=== PATIENT | male | born 1955 | race Caucasian/White ===

== ENCOUNTER 2019-08-22 14:03 | Inpatient (IN) ==
[2019-08-22] MEDS ORDERED: ASPIRIN PO ONE (14:11)
--- NOTE | 2019-08-22 14:15 | PROVIDER DOCUMENTATION ---
HPI-Chest Pain - General Chief Complaint: Chest Pain Stated Complaint: "HEART ATTACK SYMPTOMS" Time Seen by Provider: 08/22/19 14:07 Source: patient, family Allergies/Adverse Reactions: Patient Allergies Allergy/AdvReac Type Severity Reaction Status Date / Time No Known Allergies Allergy Verified 08/22/19 16:38 Home Medications: Home Medication List Medication Instructions Recorded Confirmed Last Taken Type Hydrocodone/APAP 10 mg/325 mg 1 each PO Q4H PRN PRN #20 tablet 06/09/14 12/11/17 11/14/17 16:00 Rx [[place]-10] Aspirin [Aspirin EC] 1 tab PO DAILY 06/26/14 12/11/17 11/14/17 08:00 History Amlodipine Besylate 1 tab PO DAILY 02/06/17 12/11/17 11/14/17 08:00 History Carvedilol 25 mg PO DAILY 02/06/17 12/11/17 11/14/17 18:00 History Clonidine HCl 1 tab PO DAILY 02/06/17 12/11/17 11/14/17 08:00 History Colchicine 0.6 mg PO TID #30 capsule 02/06/17 12/11/17 11/14/17 18:00 Rx Glipizide [Glucotrol] 1 tab PO DAILY 02/06/17 12/11/17 11/14/17 08:00 History Losartan Potassium 1 tab PO DAILY 02/06/17 12/11/17 11/14/17 18:00 History Pravastatin Sodium 1 tab PO HS 02/06/17 12/11/17 11/14/17 18:00 History Dulaglutide [Trulicity] 0.75 units SQ DIRECTED 05/27/17 12/11/17 11/14/17 08:00 History Insulin Degludec [Tresiba 30 units SQ DAILY 05/27/17 12/11/17 11/14/17 08:00 History Flextouch U-200] Colchicine [Mitigare] 0.6 mg PO DAILY #30 cap 11/08/18 Unknown Rx Prednisone 20 mg PO DIRECTED #18 tab 11/08/18 Unknown Rx - History of Present Illness-CP Nature of Presenting Problem: Patient is a 64 yo M with PMH of DM2, HTN, CVA, CAD, GERD, Gout, Nephrolithiasis, who presents to the ED c/o 3-4 days of right shoulder pain radiating to the center of his chest. He attributes his shoulder pain to an acute attack of gouty arthritis. He denies dizziness, sob, palpitations, syncope, n/v/d. He endorses a h/o "multiple heart attacks" but says he does not follow with a customer advisor specialist. Per chart review- patient was admitted for chest pain in 06/2014, EKG and cardiac enzymes were trended and neg but do to risk factors, further cardiac work-up was recommended- which patient refused. His PCP is Dr. Rhodes. Location: reports: central, shoulder (Right) Quality of Pain: reports: aching Severity in ED: severe Onset/Duration: abrupt, 3 days ago Timing: still present, getting worse Context/Activities at Onset: reports: none Modifying Factors: improves with: nothing Associated Symptoms: reports: denies symptoms Aspirin Treatment Today: provided by ED Prior Chest Pain/Cardiac Workup: reports: no prior cardiac workup, angina Similar Symptoms Previously?: Yes Recently Seen Here or By Another Healthcare Provider: No Review of Systems - Adult - REVIEW OF SYSTEMS - ADULT Constitutional: reports: no symptoms reported Eyes: reports: no symptoms reported Ears, Nose, Mouth & Throat: reports: no symptoms reported Cardiovascular: reports: see HPI Respiratory: reports: no symptoms reported Gastrointestinal: reports: no symptoms reported Genitourinary: reports: no symptoms reported Musculoskeletal: reports: no symptoms reported Integumentary: reports: no symptoms reported Neurological: reports: no symptoms reported Psychiatric: reports: no symptoms reported Endocrine: reports: no symptoms reported Hematologic/Lymphatic: reports: no symptoms reported Allergic/Immunologic: reports: no symptoms reported All Other Systems: Reviewed and Negative Past History - Adult - PAST MEDICAL HISTORY-ADULT Review of Records: reports: Old Records Reviewed, Nursing Assessment Review, Medications Reviewed, Social history reviewed & non-contributory. Major Childhood Illnesses: reports: denies history Cardiovascular: reports: CAD, HTN, hyperlipidemia, [place] Respiratory: reports: denies history Gastrointestinal: reports: GERD Obstetrical/Gynecological: reports: denies history Genitourinary: reports: kidney disease, kidney stones Musculoskeletal: reports: chronic pain, other (gout) Neurological: reports: CVA Endocrine/Immune: reports: denies history, Diabetes Diabetes Type: Type 2 Other Conditions: reports: denies history Additional History: GOUT - PRIOR SURGERIES/PROCEDURES Surgical/Procedure History: reports: other (abdominal) - IMMUNIZATION STATUS Childhood Immunizations: See Nurse Assessment Flu Vaccine: See Nurse Assessment - FAMILY HISTORY Family History: reviewed, not pertinent - SOCIAL HISTORY Smoking: denies Substance Use: none/never Alcohol Use Frequency: sober (former use) Living Situation: family Physical Exam-General - PHYSICAL EXAM-ADULT Initial Vital Signs Reviewed: Yes (Mild tachycardia noted, hypertension noted ) - CONSTITUTIONAL General Appearance: alert, no apparent distress, other (Appears to be in pain (c/o shoulder pain)) - EYES Eyes: PERRL/EOMI - HEAD, EARS, NOSE, MOUTH & THROAT HENMT: normocephalic/atraumatic, moist mucous membranes - NECK Neck: non-tender, full range of motion - RESPIRATORY Respiratory: chest non-tender, lungs clear, normal breath sounds - CARDIOVASCULAR Cardiovascular: normal peripheral pulses, no edema, no gallop, tachycardia, systolic murmur (Best at [facility]) - GASTROINTESTINAL (ABDOMEN) Abdominal Exam: normal bowel sounds, non tender, soft, no organomegaly - LYMPHATIC Lymphatic: no adenopathy - MUSCULOSKELETAL Back Exam: decreased range of motion (+ tenderness with passive and active ROM of right shoulder) Extremity: non-tender, no calf tenderness - NEUROLOGIC Neurologic: grossly normal - PSYCHIATRIC Psych/Mental Status: oriented x 3 - HEART Score HEART Score: History: Moderately Suspicious HEART Score: ECG: Non-Specific Repolarization Disturbance/LBBB/PM HEART Score: Age: 45-65 Years HEART Score: Risk Factors for Atherosclerotic Disease: > or = 3 Risk Factors or History of Atherosclerotic Disease HEART Score: Troponin: 1-3x Normal Limit (High risk for MACE) Total HEART Score:: 6 Progress - PLAN OF CARE/RESULTS Progress/Plan/Lab Results: Vital Signs - 8 hr 08/22/19 16:38 08/22/19 16:40 08/22/19 17:00 Pulse Rate 100 H Respiratory Rate 22 Blood Pressure 177/107 O2 Sat by Pulse Oximetry 95 95 93 L 08/22/19 18:00 08/22/19 18:50 Pulse Rate 101 H 97 H Respiratory Rate 25 H 25 H Blood Pressure 185/107 O2 Sat by Pulse Oximetry 93 L 93 L Laboratory Results - last 24 hr 08/22/19 08/22/19 08/22/19 14:17 14:17 14:17 WBC 25.14 H RBC 5.39 Hgb 14.1 Hct 44.1 MCV 81.8 MCH 26.2 L MCHC 32.0 L RDW Std Deviation 15.4 H Plt Count 203 MPV 12.0 H Immature Gran % (Auto) 0.4 Neut % (Auto) 82.6 H Lymph % (Auto) 4.2 L [place] % (Auto) 12.6 H Eos % (Auto) 0.0 Baso % (Auto) 0.2 Immature Gran # (Auto) 0.11 H Neut # (Auto) 20.75 H Lymph # (Auto) 1.05 L [place] # (Auto) 3.18 H Eos # (Auto) 0.00 Baso # (Auto) 0.05 PT INR PTT (Actin FS) Sodium 135 L Potassium 4.2 Chloride 96 L Carbon Dioxide 23 L Anion Gap 16 BUN 25 H Creatinine 1.9 H Estimated GFR/1.73 m2 36 BUN/Creatinine Ratio 13 Glucose 265 H Calculated Osmolality 284 Uric Acid Calcium 9.2 Total Bilirubin 0.51 AST 9 L ALT 6 L Alkaline Phosphatase 73 Creatine Kinase 71 Troponin T High Sens Eag-G-Leawatkfcfj Pept 7046 H Total Protein 7.8 Albumin 4.0 Globulin 3.8 Albumin/Globulin Ratio 1.1 Plasma Lactate Urine Source Urine Color Urine Turbidity Urine pH Ur Specific [place] Urine Protein Ur Glucose (Stick) Ur Ketones (Stick) Urine Blood Urine Nitrite Urine Bilirubin Urobilinogen Dipstick Urine Leukocytes Urine WBC (Auto) Urine RBC (Auto) U Epithel Cells (Auto) Urine Bacteria (Auto) 08/22/19 08/22/19 08/22/19 14:17 14:17 16:43 WBC RBC Hgb Hct MCV MCH MCHC RDW Std Deviation Plt Count MPV Immature Gran % (Auto) Neut % (Auto) Lymph % (Auto) [place] % (Auto) Eos % (Auto) Baso % (Auto) Immature Gran # (Auto) Neut # (Auto) Lymph # (Auto) [place] # (Auto) Eos # (Auto) Baso # (Auto) PT 15.3 INR 1.19 PTT (Actin FS) 37.6 Sodium Potassium Chloride Carbon Dioxide Anion Gap BUN Creatinine Estimated GFR/1.73 m2 BUN/Creatinine Ratio Glucose Calculated Osmolality Uric Acid Calcium Total Bilirubin AST ALT Alkaline Phosphatase Creatine Kinase Troponin T High Sens 34 H* 33 H* Sgd-M-Zzifwuohyjw Pept Total Protein Albumin Globulin Albumin/Globulin Ratio Plasma Lactate Urine Source Urine Color Urine Turbidity Urine pH Ur Specific [place] Urine Protein Ur Glucose (Stick) Ur Ketones (Stick) Urine Blood Urine Nitrite Urine Bilirubin Urobilinogen Dipstick Urine Leukocytes Urine WBC (Auto) Urine RBC (Auto) U Epithel Cells (Auto) Urine Bacteria (Auto) 08/22/19 08/22/19 08/22/19 16:45 17:18 18:43 WBC RBC Hgb Hct MCV MCH MCHC RDW Std Deviation Plt Count MPV Immature Gran % (Auto) Neut % (Auto) Lymph % (Auto) [place] % (Auto) Eos % (Auto) Baso % (Auto) Immature Gran # (Auto) Neut # (Auto) Lymph # (Auto) [place] # (Auto) Eos # (Auto) Baso # (Auto) PT INR PTT (Actin FS) Sodium Potassium Chloride Carbon Dioxide Anion Gap BUN Creatinine Estimated GFR/1.73 m2 BUN/Creatinine Ratio Glucose Calculated Osmolality Uric Acid 8.6 H Calcium Total Bilirubin AST ALT Alkaline Phosphatase Creatine Kinase 69 Troponin T High Sens Udu-U-Qsdyemafojy Pept Total Protein Albumin Globulin Albumin/Globulin Ratio Plasma Lactate 2.2 Urine Source CLEAN CATCH Urine Color YELLOW Urine Turbidity CLEAR Urine pH 6.0 Ur Specific [place] 1.023 Urine Protein 600 A Ur Glucose (Stick) 1000 A Ur Ketones (Stick) NEGATIVE Urine Blood SMALL A Urine Nitrite NEGATIVE Urine Bilirubin NEGATIVE Urobilinogen Dipstick NORMAL Urine Leukocytes NEGATIVE Urine WBC (Auto) 10-20 A Urine RBC (Auto) 10-20 A U Epithel Cells (Auto) <10 Urine Bacteria (Auto) NEGATIVE 08/22/19 22:45 WBC RBC Hgb Hct MCV MCH MCHC RDW Std Deviation Plt Count MPV Immature Gran % (Auto) Neut % (Auto) Lymph % (Auto) [place] % (Auto) Eos % (Auto) Baso % (Auto) Immature Gran # (Auto) Neut # (Auto) Lymph # (Auto) [place] # (Auto) Eos # (Auto) Baso # (Auto) PT INR PTT (Actin FS) Sodium Potassium Chloride Carbon Dioxide Anion Gap BUN Creatinine Estimated GFR/1.73 m2 BUN/Creatinine Ratio Glucose Calculated Osmolality Uric Acid Calcium Total Bilirubin AST ALT Alkaline Phosphatase Creatine Kinase Troponin T High Sens Vvn-A-Otqogbojuhp Pept Total Protein Albumin Globulin Albumin/Globulin Ratio Plasma Lactate 1.4 Urine Source Urine Color Urine Turbidity Urine pH Ur Specific [place] Urine Protein Ur Glucose (Stick) Ur Ketones (Stick) Urine Blood Urine Nitrite Urine Bilirubin Urobilinogen Dipstick Urine Leukocytes Urine WBC (Auto) Urine RBC (Auto) U Epithel Cells (Auto) Urine Bacteria (Auto) Orders Category Date Time Status Admit [facility] Routine AdmDCTranf 08/22/19 21:28 Active Activity Type ORDERED Care 08/22/19 22:57 Active Cardiac Monitoring DIRECTED Care 08/22/19 14:12 Active Cardiac Monitoring DIRECTED Care 08/22/19 16:57 Active FSBS/Accucheck Result AC + HS Care 08/22/19 21:33 Active IV Insertion ORDERED Care 08/22/19 16:57 Completed Notify MD of + Sepsis Screen NOW Care 08/22/19 16:57 Active Notify Physician As Ordered Care 08/22/19 16:57 Active Oxygen Therapy- ED Nursing DIRECTED Care 08/22/19 14:12 Active Saline Loc NOW Care 08/22/19 14:12 Active Vital Signs Order Q 4-HR ASSESS Care 08/22/19 21:31 Active Diabetic Diet Diet 08/22/19 22:58 Active CHEST-2 VIEWS [RAD] Stat Exams 08/22/19 14:12 Completed A1C HGB W EST AVG GLUCOSE [CHEM] Routine Lab 08/23/19 06:00 Ordered BLOOD CULTURE [BLDCUL] Stat Lab 08/22/19 18:10 Results CBC WITH ELECTRONIC DIFF [HEME] Stat Lab 08/22/19 14:17 Completed CK PROFILE [SP CHEM] Stat Lab 08/22/19 14:17 Completed CK PROFILE [SP CHEM] Stat Lab 08/22/19 16:45 Completed COMPREHENSIVE METABOLIC PANEL [CHEM] Stat Lab 08/22/19 14:17 Completed LACTATE, PLASMA [CHEM] Lab 08/22/19 17:18 Completed LACTATE, PLASMA [CHEM] Lab 08/22/19 22:45 Completed LACTATE, PLASMA [CHEM] Lab 08/22/19 23:00 Uncollected PRO B-NATRIURETIC PEPTIDE Stat Lab 08/22/19 14:17 Completed PROTIME WITH INR [COAG] Stat Lab 08/22/19 14:17 Completed PTT [COAG] Stat Lab 08/22/19 14:17 Completed TROPONIN T HIGH SENSITIVITY Stat Lab 08/22/19 14:17 Completed TROPONIN T HIGH SENSITIVITY Stat Lab 08/22/19 16:43 Completed URIC ACID [CHEM] Stat Lab 08/22/19 16:45 Completed URINALYSIS W/POSS RFLX CULT [URINALYSIS] Stat Lab 08/22/19 18:43 Completed URINE CULTURE [RM] Routine Lab 08/22/19 18:43 Received Aspirin Med 08/22/19 14:11 Discontinued 325 mg PO NOW ONE Colchicine [Colcrys] Med 08/22/19 16:20 Discontinued 1.2 mg PO NOW ONE Dexamethasone [Decadron] Med 08/22/19 16:15 Discontinued 10 mg IM NOW ONE Dextrose 5%-0.9% NaCl Inj [D5 Ns] 1,000 ml Med 08/22/19 18:58 Active IV 60 mls/hr Furosemide [Lasix] Med 08/22/19 18:58 Discontinued 40 mg IV NOW ONE Insulin Lispro [Humalog] Med 08/23/19 07:00 Active See Protocol SUBQ 0700,1100,1600,2100 Morphine Med 08/22/19 19:03 Discontinued 4 mg IV NOW ONE Ondansetron [Zofran] Med 08/22/19 18:07 Discontinued 4 mg IM NOW ONE Ondansetron [Zofran] Med 08/22/19 18:11 Discontinued 4 mg IV NOW ONE CP/SOB/Palp >45 yrs of Age Stat Oth 08/22/19 14:11 Ordered Oxygen Device Stat Oth 08/22/19 16:57 Active EKG [EKG] Stat Ther 08/22/19 14:12 Draft EKG [EKG] Stat Ther 08/22/19 17:00 Draft Transfer/Admit Order [TRANSFER] Routine Transfer 08/22/19 21:29 Completed Patient presents with atypical cp. Initial cardiac enzymes elevated, EKG- no acute change from prior, Troponin/EKG trended x 2 in the ED, Troponin stable and no ekg changes noted. BNP elevated form baseline. Heart score- high risk. Elevated WBC likely 2/2 chronic steroid use and acute flare of gouty arthritis. Will proceed with admission to complete cardiac work-up and treat for gout. Result Diagrams: 08/22/19 14:17 08/22/19 14:17 - EKG 1 Time of EKG reading by physician:: 14:11 EKG Read and Signed by:: Cherelle Moran EKG Interpretation (*Must complete 3 of following elements*): Abnormal Rate: 101 Rhythm: Sinus tachycardia [place]: normal QRS: normal [place] Interval: normal ST Wave: depressed, non-specific ST changes Prior EKG Comparison: unchanged from prior (No change from 11/15/2017, 1025) 2 Time of EKG reading by physician:: 17:15 EKG Read and Signed by:: Cherelle Moran EKG Interpretation (*Must complete 3 of following elements*): Abnormal Rate: 100 Rhythm: Sinus rhythm with fusion complexes [place]: normal [place] Interval: normal ST Wave: non-specific ST changes Prior EKG Comparison: unchanged from prior - XRAY 1 XRAY Study: Chest (EXAM: CHEST-2 VIEWS HISTORY: cp TECHNIQUE: Two views COMPARISON: 11/19/2016 FINDINGS: The lungs are well expanded. The heart is not enlarged. The vessels are not distended. There are no infiltrates. No pleural effusions. IMPRESSION: No acute abnormality. Electronically signed by Luigi Crawford 08/22/2019 4:31 PM) Impression: See EMR Report - CONSULTS/PCP/HOSPITALIST Notification #1 *Consult/PCP/Hospitalist*: Dr. Workman Time Discussed: 20:10 Reason/Comments: Admit to inpatient Consult Disposition: Admit (Consult cardiology to address any further recommendations in light of elevated Troponin), other #2 Consult: Cardiology Time Discussed: 20:37 Reason/Comments: Troponinemia- patient possibly has underlying CAD, acute ACS less likely Time Discussed: 20:50 Consult Disposition: other (Foreclosure Clerk (Dr. Wong) reviewed historic records, per review, patient underwent a cardiac cath in 1997 which was neg, no other cardiac w/up available.) Departure - Departure Date of Disposition Decision: 08/22/19 Time of Disposition Decision: 20:22 DIAGNOSIS: CKD (chronic kidney disease) stage 3, GFR 30-59 ml/min, Elevated troponin Congestive cardiac failure Qualifiers: Heart failure type: unspecified Heart failure chronicity: acute on chronic Qualified Code(s): I50.9 - Heart failure, unspecified Acute gout Qualifiers: Gout site: shoulder Gout etiology: idiopathic Laterality: right Qualified Code(s): M10.011 - Idiopathic gout, right shoulder Leukocytosis Qualifiers: Leukocytosis type: other Qualified Code(s): D72.828 - Other elevated white blood cell count Disposition: ADMITTED INPATIENT 09 Certified Medical Emergency: Emergent Condition: Stable - Critical Care Note This patient required my direct & personal management of CC.: Yes Total Time (mins): 70 Critical Care Statement: This patient required my direct personal management to treat or rule out processes, the absence of which, could potentiallly result in sudden, clinically significant life or limb threatening deterioration. Attestation - Physician/ LORNA Attestation Patient care was provided by Advanced Practice Provider:: No The physician spent face to face time with patient:: Yes Advanced Practice Provider documentation review:: Supervising physician onsite and consulted in the evaluation and care of this patient. The physician did have a face to face encounter with the patient.
--- NOTE | 2019-08-22 14:16 | EKG Report ---
Test Performed on : 08/22/2019 2:11:04 PM Test Reason : cp Blood Pressure : / mmHG Vent. Rate : 101 BPM Atrial Rate : 101 BPM P-R Int : 162 ms QRS Dur : 082 ms QT Int : 376 ms P-R-T Axes : 030 -05 048 degrees QTc Int : 487 ms Sinus tachycardia. Marked ST abnormality, possible inferior subendocardial injury Abnormal ECG When compared with ECG of 15-NOV-2017 10:25, No significant change was found Unconfirmed Result
[2019-08-22 14:30] LABS: BASO# 0.05 X1000 (0.0-0.2); BASO% 0.2 % (0.0-0.8); HEMATOCRIT 44.1 % (42.0-52.0); HEMOGLOBIN 14.1 g/dL (14.0-18.0); IMM GRAN# 0.11 X1000 (0.0-0.04); IMM GRAN% 0.4 % (0.0-0.5); LYMPH# 1.05 X1000 (1.2-3.4); LYMPH% 4.2 % (20.5-51.1); MCH 26.2 PG (27-31); MCV 81.8 FL (81-99); MONO# 3.18 X1000 (0.11-0.59); MONO% 12.6 % (1.7-9.3); NEUT# 20.75 X1000 (1.4-6.5); NEUT% 82.6 % (42.2-75.2); PLT 203 X1000 (130-400); RBC 5.39 XMIL (4.7-6.1); RDW 15.4 % (11.5-14.5); WBC 25.14 X1000 (4.8-10.8)
[2019-08-22 14:35] LABS: INR 1.19; PROTIME 15.3 Seconds (11.0-16.0)
[2019-08-22 14:36] LABS: PTT 37.6 Seconds (22.3-41.8)
[2019-08-22 14:49] LABS: ALB/GLOB RATIO 1.1; CALCIUM 9.2 mg/dL (8.8-10.2); CREATININE 1.9 mg/dL (0.7-1.2); POTASSIUM 4.2 mmol/L (3.5-5.1); TOTAL BILIRUBIN 0.51 mg/dL (0.20-1.00); TOTAL PROTEIN 7.8 g/dL (6.3-8.3)
[2019-08-22] MEDS ORDERED: DECADRON IM ONE (16:15)
[2019-08-22] MEDS ORDERED: COLCRYS PO ONE (16:20)
--- NOTE | 2019-08-22 16:33 | Diag Imaging Result Doc PS360 ---
EXAM: CHEST-2 VIEWS HISTORY: cp TECHNIQUE: Two views COMPARISON: 11/19/2016 FINDINGS: The lungs are well expanded. The heart is not enlarged. The vessels are not distended. There are no infiltrates. No pleural effusions. IMPRESSION: No acute abnormality. Electronically signed by Luigi Crawford 08/22/2019 4:31 PM
[2019-08-22 17:13] LABS: URIC ACID 8.6 mg/dL (3.4-7.0)
--- NOTE | 2019-08-22 17:22 | EKG Report ---
Test Performed on : 08/22/2019 5:12:20 PM Test Reason : Chest pain Blood Pressure : / mmHG Vent. Rate : 100 BPM Atrial Rate : 100 BPM P-R Int : 176 ms QRS Dur : 078 ms QT Int : 354 ms P-R-T Axes : 069 -03 237 degrees QTc Int : 456 ms Sinus rhythm. with fusion complexes Nonspecific ST and T wave abnormality Abnormal ECG When compared with ECG of 22-AUG-2019 17:11, (Unconfirmed) Sinus rhythm. has replaced Junctional rhythm. Nonspecific T wave abnormality has replaced inverted T waves in Inferior leads Unconfirmed Result
[2019-08-22] MEDS ORDERED: ZOFRAN IM ONE (18:07)
[2019-08-22] MEDS ORDERED: ZOFRAN IV ONE (18:11)
[2019-08-22 18:52] LABS: URINE SOURCE CLEAN CATCH
[2019-08-22 18:55] LABS: BILIRUBIN URINE NEGATIVE (NEGATIVE); BLOOD URINE SMALL (NEGATIVE); COLOR YELLOW; GLUCOSE URINE 1000 mg/dL (NEGATIVE); KETONE URINE NEGATIVE (NEGATIVE); LEUKOCYTES URINE NEGATIVE (NEGATIVE); NITRITE URINE NEGATIVE (NEGATIVE); PROTEIN URINE 600 mg/dL (NEGATIVE); SP GRAVITY URINE 1.023; TURBIDITY URINE CLEAR (CLEAR); UROBILINOGEN URINE NORMAL (NORMAL)
[2019-08-22 18:56] LABS: UR EPITHELIAL CELLS <10 /HPF (<10); URINE BACTERIA NEGATIVE /HPF
[2019-08-22] MEDS ORDERED: D5 NS 1,000 ML IV ONE (18:58)
[2019-08-22] MEDS ORDERED: LASIX IV ONE (18:58)
[2019-08-22] MEDS ORDERED: MORPHINE IV ONE (19:03)
[2019-08-23] MEDS ORDERED: MORPHINE IV ONE (04:52)
[2019-08-23 04:57] LABS: HEMOGLOBIN A1C 9.1 % (4.8-6.0)
[2019-08-23] MEDS ORDERED: SOLU-MEDROL IV SCH (05:00)
[2019-08-23] MEDS ORDERED: NITROGLYCERIN TOP SCH (05:15)
[2019-08-23] MEDS ORDERED: LEVAQUIN 250 MG/D5W 250 MG/50 ML IVPB IV SCH (05:15)
--- NOTE | 2019-08-23 07:42 | EKG Report ---
Test Performed on : 08/23/2019 07:15:10 AM Test Reason : chest pain, right upper shoulder pain Blood Pressure : / mmHG Vent. Rate : 094 BPM Atrial Rate : 094 BPM P-R Int : 162 ms QRS Dur : 086 ms QT Int : 412 ms P-R-T Axes : 055 000 -36 degrees QTc Int : 515 ms Normal sinus rhythm. Nonspecific ST abnormality Prolonged QT Abnormal ECG When compared with ECG of 23-AUG-2019 04:15, (Unconfirmed) premature ventricular complexes. are no longer present Confirmed by Chandra BOONE, Eben Del Rosario ([id number]) on 08/23/2019 10:21:02 AM
--- NOTE | 2019-08-23 07:49 | Diag Imaging Result Doc PS360 ---
EXAM: SHOULDER-RIGHT 08/23/2019 HISTORY: pain right shoulder TECHNIQUE: AP portable, two views, at 0607 COMMENT: There is no evidence of fracture or dislocation periosteal reaction or erosion. There are mild degenerative changes in the acromioclavicular joint. IMPRESSION: No acute bony abnormality. Electronically signed by Basilio Rivera 08/23/2019 7:46 AM
[2019-08-23] MEDS: HUMALOG SUBQ SCH ×4 (07:58→21:33)
[2019-08-23] MEDS: PROTONIX PO SCH (07:59)
[2019-08-23] MEDS ORDERED: VANCOMYCIN IV PER PHARMACY MISC SCH (08:00)
[2019-08-23] MEDS ORDERED: COREG PO SCH (09:00)
[2019-08-23] MEDS ORDERED: NORVASC PO SCH (09:00)
[2019-08-23] MEDS ORDERED: COLCRYS PO SCH (09:00)
--- NOTE | 2019-08-23 09:27 | EKG Report ---
Test Performed on : 08/23/2019 04:15:44 AM Test Reason : RHYTHM CHANGE Blood Pressure : / mmHG Vent. Rate : 088 BPM Atrial Rate : 088 BPM P-R Int : 174 ms QRS Dur : 084 ms QT Int : 430 ms P-R-T Axes : 054 012 -39 degrees QTc Int : 520 ms Sinus rhythm. with occasional premature ventricular complexes. ST & T wave abnormality, consider inferior ischemia Prolonged QT Abnormal ECG When compared with ECG of 22-AUG-2019 17:12, (Unconfirmed) fusion complexes are no longer present premature ventricular complexes. are now present T wave inversion now evident in Inferior leads QT has lengthened Unconfirmed Result
[2019-08-23] MEDS ORDERED: VANCOMYCIN 2,000 MG in NS 500 ML IV ONE (09:30)
--- NOTE | 2019-08-23 09:38 | HISTORY AND PHYSICAL ---
CHIEF COMPLAINT: Right shoulder pain for about 2 to 3 days. HISTORY OF PRESENT ILLNESS: Mr. Ankit Barriga is a 64-year-old male who has a history of gout, hyperlipidemia, hypertension, previous CVA, coronary artery disease as well as diabetes mellitus. He presents to the hospital because of pain which he noticed in the right shoulder region in the last 2 to 3 days. He describes the pain as sharp constant and non radiating. No known alleviating factors. It is made worse with activity. The patient indicates that he had gout flare involving that shoulder about 3 months ago. Typically, his gout could be flared by eating the wrong food including seafood as well as red meat. On presenting to the ER, the patient was found to have a uric acid level of about 8.6. The patient will be admitted to the floor now for further management. PAST MEDICAL HISTORY: Diabetes mellitus, coronary artery disease, previous CVA, hypertension, gout, and hyperlipidemia. SOCIAL HISTORY: Denies any current history of cigarette smoking. No alcohol or drug use. ALLERGIES: No known drug allergies. FAMILY HISTORY: Positive for COPD. 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 MEDICATIONS: His medications include the following. 1. Amlodipine 10 mg p.o. daily. 2. Aspirin 81 mg p.o. daily. 3. Coreg 25 mg p.o. as directed. 4. Losartan 100 mg p.o. as directed. 5. Prednisone 20 mg p.o. as directed. 6. Clonidine 0.3 mg as directed. 7. Colchicine 0.6 mg as directed. 8. Dulaglutide as directed. 9. Glipizide 10 mg as directed. 10. Hydrocodone/acetaminophen 10/325 as directed. 11. Pravastatin 40 mg p.o. daily. REVIEW OF SYSTEMS: Constitutional: No fever. [employer]: No headaches. Eyes: No blurred vision. ENT: He has some hearing loss. Cardiovascular: No chest pain. Respiratory: No cough. GI: No nausea or vomiting. No abdominal pains. No diarrhea or constipation. : No dysuria. Dermatology: No skin lesions. Hematology: No bleeding problems. Musculoskeletal: He has joint pains. Endocrinology: He has diabetes. Allergy/Immunology: No symptoms suggestive of allergic rhinitis. LABORATORY DATA: WBC is 25.14, hematocrit 44.1, with a platelet count of 203,000. INR is 1.19. Sodium is 135, potassium 4.2, chloride is 96, bicarb 23, BUN is 25, and creatinine is 1.9. Glucose 265. Uric acid 28.6. Troponin 33. ProBNP is 7046. UA shows 10-20 WBCs per high-power field. X-ray of the chest, the lungs are well-expanded. The heart is not enlarged. The vessels are nondistended. There are no infiltrates. No pleural effusion. ASSESSMENT AND PLAN: 1. Acute gout flare involving the right shoulder. We will start patient on intravenous steroids. Continue colchicine. Obtain x-ray of the right shoulder. 2. Coronary artery disease/elevated troponin. Place patient on telemetry, and get serial cardiac enzymes. Maintain patient on aspirin as well as beta ashia and nitroglycerin p.r.n. for chest pain. Obtain a lipid panel. Consult with Cardiology. 3. Diabetes mellitus. Maintain patient on sliding scale insulin. Monitor blood sugar levels. Check hemoglobin A1c. Place patient on diabetic diet. 4. History of CVA. Continue aspirin as well as a statin supportive care. 5. Hypertension. Optimize blood pressure control using oral agents. 6. Renal insufficiency, probably chronic. (Acute kidney injury superimposed on chronic kidney disease. Closely follow up on renal function, and avoid nephrotoxic agent.) 7. Leukocytosis probably secondary to the effect of steroids. However, cannot rule out infection. We will check UA with urine culture. We will check urine culture as well as blood cultures with a flu test. 8. Probable urinary tract infection. Start patient on empiric antibiotics. Follow up on urine and blood culture report. 9. Elevated proBNP level. Obtain 2D echo of the heart. 10. Deep vein thrombosis prophylaxis. Heparin. 11. Gastrointestinal prophylaxis. Proton pump inhibitor. cc: Girish Workman MD
[2019-08-23] MEDS: ASPIRIN PO SCH (10:29)
[2019-08-23] MEDS: HEPARIN SUBQ SCH ×2 (10:30→21:32)
[2019-08-23] MEDS ORDERED: LANTUS INSULIN SUBQ ONE (11:09)
--- NOTE | 2019-08-23 12:10 | PROGRESS NOTE ---
DATE: 08/23/2019 SUBJECTIVE: The patient reports still complaining of severe pain in the right shoulder that has traveled some to his chest. No other complaints noted. OBJECTIVE: Vital Signs: Temperature 98.8 degrees, heart rate 92, respiratory rate 18, blood pressure 176/108, O2 saturation 95% on room air. General examination: This is a 64-year-old male, lying in bed in no acute distress. Cardiovascular exam: S1, S2 heard. No murmurs, gallops, or rubs. Regular rate and rhythm. Respiratory exam: Clear bilaterally to auscultation. No work of breathing or using accessory muscle. There is chest wall tenderness clearly reproducible in all the suprasternal area. Abdomen: Soft, nontender to palpation. Bowel sounds present. No organomegaly. Extremities: No clubbing, cyanosis, or edema. Peripheral pulses present in both legs. Neurological exam: The patient is alert, oriented x3. Moves 4 extremities. LABORATORY DATA: Reviewed and troponin-T high at 26 with A1c now 9.1. ASSESSMENT AND PLAN: 1. Chest pain. Patient was admitted to the hospital for chest pain, but upon my examination he had a clear chest wall pain; it looks like more musculoskeletal, almost likely coming also from the right shoulder pain. In any case, considering his risk factors like diabetes, a prior history of CVA, hypertension, renal insufficiency, and the fact that the troponin has been elevated, that is the reason why Cardiology has been consulted. We will follow recommendations. 2. Acute gout flare up involving the right shoulder. Patient is still hurting. He has been started on steroids considering renal function, so I think we will increase the doses of Solu- Medrol to 60 mg IV q. 8 hours. I will stop colchicine because of his renal dysfunction. Patient receiving already pantoprazole 40 mg oral daily. We will continue with the same management. Because it is suspicious for septic arthritis I will consult Orthopedics and ID and will go from there. 3. Diabetes mellitus type 2. We will continue with sliding scale insulin. Blood sugar has been high because of the intravenous steroids. We will start Lantus. We will continue to check blood sugars before meals and also at bedtime. A1c is very elevated. 4. Acute on chronic kidney disease. Renal function is 1.9. We have not checked renal function today. We will continue to monitor renal profile. 5. Possible urinary tract infection. The urine culture has been ordered and is negative, so we will not need to continue with antibiotics. 6. Disposition: We will continue to monitor this patient closely. cc: Kunal Montez MD MTDD
[2019-08-23] MEDS: SOLU-MEDROL IV SCH ×2 (12:24→21:32)
[2019-08-23] MEDS: DILAUDID IV PRN ×2 (12:29→19:29)
--- NOTE | 2019-08-23 13:09 | EKG Report ---
Test Performed on : 08/23/2019 11:42:11 AM Test Reason : abnormal ekg Blood Pressure : / mmHG Vent. Rate : 097 BPM Atrial Rate : 097 BPM P-R Int : 154 ms QRS Dur : 092 ms QT Int : 408 ms P-R-T Axes : 043 007 120 degrees QTc Int : 518 ms Sinus rhythm. with occasional premature ventricular complexes. Nonspecific ST and T wave abnormality Prolonged QT Abnormal ECG When compared with ECG of 23-AUG-2019 07:15, premature ventricular complexes. are now present T wave inversion no longer evident in Inferior leads Confirmed by Eben Artis MD ([id number]) on 08/25/2019 7:00:54 PM
--- NOTE | 2019-08-23 13:59 | ECHO REPORT ---
ORDER DATE: 08/23/2019 INTERPRETING PHYSICIAN: Dr. De Miranda. ECHOCARDIOGRAPHIC MEASUREMENTS: 1. Interventricular septum: 1.6 cm. 2. Left ventricular posterior wall: 1.6 cm. 3. Diastolic diameter: 5.6 cm. 4. Left atrium: 4.1 cm. 5. Aorta: 3.1 cm. SUMMARY OF THE 2-DIMENSIONAL IMAGIN. Aortic valve leaflets were trileaflet, calcified, opening normally. 2. Pulmonic valve was normal. There was mild pulmonary regurgitation. 3. Tricuspid valve was normal. 4. Mitral valve was normal. There is mitral annular calcification. 5. There is mild tricuspid regurgitation. Peak velocity across the tricuspid valve was 2 m/sec. 6. That is grade 2 diastolic dysfunction. 7. Normal left ventricular cavity size. Concentric left ventricular hypertrophy. Estimated ejection fraction of 55 to 60 percent. 8. Peak velocity across the aortic valve was less than 2 m/sec. There is no aortic stenosis or regurgitation. There is aortic sclerosis. 9. There is no pericardial effusion or obvious intracardiac mass or thrombus. cc: MD Girish Ravi MD
[2019-08-23] MEDS: COZAAR PO SCH (14:02)
[2019-08-23] MEDS: CUBICIN 600 MG in NS 100 ML IV SCH (16:52)
--- NOTE | 2019-08-23 18:08 | Diag Imaging Result Doc PS360 ---
EXAM: CT THORAX W/O CONTRAST INDICATION: chest and R shoulder pain TECHNIQUE: This exam was performed using automated exposure control, adjustment of mA or kV according to patient size, and/or use of iterative reconstruction technique. COMPARISON: 06/26/2014 FINDINGS: There is mild subsegmental atelectasis at both lung bases. There are a couple of calcified granulomata at the anterior segment of the right upper lobe. There is no pleural fluid collection and no pneumothorax. There are calcified mediastinal and right hilar lymph nodes indicating prior granulomatous disease. There is no evidence of significant mediastinal or hilar lymphadenopathy, otherwise. There is coronary artery atherosclerotic calcification. There is no cardiomegaly. There is no evidence of acute osseous abnormality. IMPRESSION: Mild bibasilar subsegmental atelectasis. No evidence of acute chest pathology by unenhanced CT, otherwise. Electronically signed by Stefan Schaefer 08/23/2019 6:05 PM
--- NOTE | 2019-08-23 19:57 | CONSULTATION ---
DATE OF CONSULTATION: 08/23/2019 IMPRESSION: 1. Fairly intense right shoulder pain aggravated by movement with associated pain in region of right costoclavicular joint as well. Clinical features very atypical for myocardial ischemia, most likely musculoskeletal in origin possibly due to acute inflammatory arthritis. Given positive blood culture consider also the possibility of septic arthritis. 2. Gram-positive cocci bacteremia. 3. Atherosclerotic coronary disease. Details pending. Preliminary indication from echocardiography is that the left ventricular ejection fraction is normal. 4. Type 2 diabetes mellitus poorly controlled. 5. Gout. 6. Previous cerebrovascular accident. 7. Hypertension. 8. Nephrolithiasis. RECOMMENDATIONS: 1. Followup echocardiography. 2. Treat for acute inflammatory right shoulder arthritis and consider further evaluation of her for possible septic arthritis. Suggested infectious disease consultation and possible orthopedic surgery consultation as well. 3. Conservative management from a cardiovascular standpoint. Certainly, transesophageal echocardiography might be considered as part of his workup for gram-positive cocci bacteremia. HISTORY: This 64-year-old white male with past history of atherosclerotic coronary disease managed medically, hypertension, type 2 diabetes mellitus, hyperlipidemia, gout, previous cerebrovascular accident, and nephrolithiasis was admitted to the emergency room for further evaluation of right shoulder pain. He relates that for the last few days he has had progressive right shoulder pain that is aggravated by movement. He has gotten to the point where he can barely move his right upper extremity without provoking intense chest pain. He has also had some pain in the right upper chest region centered over right sternoclavicular joint region. Discomfort is aggravated by palpation. He does not describe any chest discomfort that sounds remotely like angina. He denies fever or chills. He believed his shoulder pain was related to gout as he has had gout attacks involving various joints in the past. There has been no recent procedures. PAST MEDICAL HISTORY: 1. Atherosclerotic coronary disease managed medically. Details not available yet. 2. Hypertension. 3. Type 2 diabetes mellitus, poorly controlled. 4. Hyperlipidemia. 5. Previous cerebrovascular accident. 6. Gout. 7. Nephrolithiasis. PAST SURGICAL HISTORY: Includes colon resection. ALLERGIES: He has no known drug allergies. MEDICATIONS PRIOR TO ADMISSION: As listed. SOCIAL HISTORY: He is and disabled. He does not smoke or use alcohol. FAMILY HISTORY: Negative for premature coronary disease. REVIEW OF SYSTEMS: Pulmonary: Noncontributory beyond history of present illness. Gastrointestinal: Noncontributory beyond history of present illness. Constitutional: Noncontributory beyond history of present illness. Remainder review of systems negative/noncontributory beyond history of present illness with 14 total systems reviewed. PHYSICAL EXAMINATION: General: This is an obese, older white male in no distress. Vital signs: Blood pressure 178/104, heart rate 95, oxygen saturation 94%. HEENT Exam: Extraocular muscles appear intact. Mucous membranes are moist. Neck: Supple without jugular venous distention. There are no carotid bruits. Chest: Clear to auscultation. Cardiac: Exam reveals somewhat distant heart sounds. A regular rate and rhythm is demonstrated without appreciable murmur or gallop. Abdomen: Soft. Bowel sounds normal. Extremities: Without edema. There is no peripheral stigmata of endocarditis. Neurologic: Reveals him to be awake and fully oriented. Speech is fluent. Moves all 4 extremities equally well. PERTINENT DATA: Twelve lead EKG demonstrates sinus rhythm with occasional premature ventricular complex and nonspecific ST and T-wave abnormality. LABORATORY DATA: Includes a white blood cell count 25.14, hematocrit 44.1, hemoglobin 14.1, platelet count 203,000. Sodium 135, potassium 4.2, chloride 96, carbon dioxide 23, BUN 25, creatinine 1.9, glucose 265. CPK 71. Followup CPK 69. Troponin T 34. Followup troponin T 33. Hemoglobin A1c 9.1. Blood culture preliminary report positive for gram-positive cocci. cc: Quang Mendenhall MD
[2019-08-23] MEDS ORDERED: PRAVACHOL PO SCH (21:00)
[2019-08-23] MEDS: LANTUS INSULIN SUBQ SCH (21:00)
[2019-08-23] MEDS: NORVASC PO SCH (21:33)
[2019-08-23] MEDS: COREG PO SCH (21:33)
--- NOTE | 2019-08-23 21:44 | CONSULTATION ---
DATE OF CONSULTATION: 08/23/2019 CONCLUSION: The patient has a gram-positive coccal bacteremia, the exact organ origin of which I am uncertain. He had shoulder pain but it has pretty much moved into the right upper chest. I think this is where the bacteremia arose from. RECOMMENDATIONS: The patient has decreased hearing and his creatinine is elevated, and because of that I am going to discontinue vancomycin and place the patient on daptomycin. Also, the patient is taking pravastatin and I am going to discontinue that because it can interact with daptomycin in enhancing muscle toxicity. DISCUSSION: The patient tells me that in the past 5 days he had pain in his right shoulder, which now has been located more in the right upper chest and not the shoulder. He has not had any fever or chills. He has been anorectic. The patient's CBC shows a white count of 25,140, hemoglobin 14.1, platelet count 203,000. Creatinine is 1.9. GFR is 36. Liver function studies are normal. Uric acid level is 8.6. Urinalysis shows white cells but no bacteria. Urine culture is negative. The influenza test is negative for influenza A and B. X-ray of the right shoulder and chest x-ray both show no acute disease. PAST MEDICAL HISTORY/REVIEW OF SYSTEMS: Eyes and ears: The patient's vision is okay but his hearing is decreased.Neck: No stiffness until the present illness. Respiratory: No cough or dyspnea. Cardiac: No chest pain. There is chest pain in the upper part of the right chest. I do not think it is cardiac in nature. GI: No nausea. The patient has been anorectic since he got sick for the past 5 days. Normally he eats well. He passes his urine and his bowel movements well. He does not have diarrhea. : No dysuria or flank pain. Bones/joints/muscles: See present illness. Neurologic: No seizures. No loss of motor or sensory function. PREVIOUS HOSPITALIZATIONS AND OPERATIONS: The patient had a partial colon resection secondary to a volvulus in the past. MEDICAL DISEASES: Positive for diabetes mellitus, myocardial infarction, stroke, hypertension, obesity, gout and hyperlipidemia. FAMILY HISTORY: Positive for hypertension and COPD. SOCIAL HISTORY: The patient is . He lives with his son. He is disabled. He has dogs as pets. ALLERGIES: He has no known drug allergies. MEDICATIONS: Home medications include amlodipine, aspirin, Coreg, losartan, prednisone, clonidine, colchicine, dulaglutide, glipizide, hydrocodone and pravastatin. PHYSICAL EXAMINATION: Vital signs: Temperature is 99 degrees, pulse 95, respirations 19, blood pressure 171/108. Patient weighs 230 pounds. Generally this is an obese, elderly male. He is in no acute distress except when one touches his chest. Head, eyes, ears, nose and throat: He can hear my spoken words and see near objects. There is no drainage from his nose or ears. He does not have any white patches in his mouth. He does not have any caries or necrotic teeth. Neck: It causes him some pain to move his neck. Thorax: He is tender in the upper right part of the chest. Lungs clear to auscultation. Cardiovascular: Regular heart. Bones/joints/muscles: The patient's shoulder is not very tender. It does have some pain with movement.Neurologic: The patient is alert. He can move his extremities. There is no tremor. His memory as regarding his medical history is good. Integument: No rash. Thank you for the consult. cc: Angelo Portillo MD
[2019-08-24] MEDS: DILAUDID IV PRN ×2 (00:58→15:08)
--- NOTE | 2019-08-24 02:45 | ORTHOPAEDICS CONSULTATION ---
DATE: 08/23/2019 REASON FOR CONSULTATION: Right shoulder pain. HISTORY OF PRESENT ILLNESS: Mr. Barriga is a 64-year-old male with a past medical history of gout, hyperlipidemia, hypertension, CVA, coronary artery disease and diabetes mellitus. He presented to the [facility] Emergency Room with right shoulder pain. He states the shoulder pain started on Wednesday. He did not have a fall or any type of injury. He does state he has a significant history of gout and it is easily triggered. Unfortunately, he has had continued pain in the right shoulder and was requiring further pain management. His uric acid level on arrival to the ER was 8.6. He is going to be admitted, mostly for pain control and to rule out any infection of the shoulder. Orthopedics has been consulted for management of the right shoulder. PAST MEDICAL HISTORY: 1. Diabetes mellitus type 2. 2. Coronary artery disease. 3. Previous CVA. 4. Primary essential hypertension. 5. Frequent gout. 6. Hyperlipidemia. SOCIAL HISTORY: Denies tobacco, alcohol or illicit drug use. He has a supportive family in the room with him. PAST SURGICAL HISTORY: Colon resection for volvulus. ALLERGIES: No known drug allergies. FAMILY HISTORY: Noncontributory. MEDICATIONS: Amlodipine 10 mg p.o. daily; aspirin 81 mg p.o. daily; Coreg 25 mg p.o. as directed; losartan 100 mg p.o. as directed; prednisone 20 mg p.o. as directed; clonidine 0.3 mg as directed; colchicine 0.6 mg as directed; glipizide 10 mg as directed; Estelline 10 mg as needed for pain; pravastatin 40 mg p.o. daily. REVIEW OF SYSTEMS: A 10-point review of systems was completed and negative except for what is mentioned above in the HPI. LABORATORY DATA: His white count 25.14, hemoglobin and hematocrit are 14 and 44, platelet count is 203,000. INR is 1.19. BUN and creatinine are 25 and 1.9. DIAGNOSTIC DATA: An x-ray of the right shoulder was reviewed, interpreted by Dr. Church and showed no significant arthritis or any fracture. His joint space looks good. PHYSICAL EXAMINATION: General: This is a 64-year-old male in no acute distress. Neurological: He is alert and oriented x3, answers questions appropriately. HEENT: Head is atraumatic, normocephalic. Pupils are equal, round and reactive to light. Cardiovascular: Regular rate and rhythm. Pulmonary: Breathing is even and nonlabored. Abdomen obese, but appears soft. Right upper extremity exam: He has no tenderness to palpation at the shoulder. He does have a little tenderness to palpation along the sternocleidomastoid muscle and into the chest. He is unable to move the shoulder related to pain. His range of motion is decreased related to his pain. His hand intrinsics are intact. He has a 2+ radial pulse. He has good sensation of the hand. There are no skin ulcerations or abrasions. There is no erythema and no obvious effusion or fluctuation. ASSESSMENT: Right shoulder pain. PLAN: Apparently the patient has had several flare-ups of gout over the last year. He does not take allopurinol and he has not taken his prednisone or his colchicine for this gouty flare. He was given steroids in the emergency room and states he does feel better. He has also been started on antibiotics as well. He does have leukocytosis, but this was done after he was given the steroids, so it may be secondary to the effect of the steroids. He did have a urine culture that has so far come back negative. He was started on empiric antibiotics for this. I do not believe that the shoulder is septic, so we will reassess him in the morning. Presently the patient states he has made good progress and is feeling better; however, if in the morning he is still having pain and his white count is not trending down, we will do a right shoulder joint aspiration to rule out a joint infection. We will also check for gout crystals and see if that is the culprit. We will recheck him in the morning. Thanks for the consult. We will go ahead and make him NPO tonight, just in case there is a possibility of infection which needs to be washed out tomorrow. Dictated by ANNE-MARIE Rosenthal for Emerson Church MD cc: ANNE-MARIE Rosenthal MD
[2019-08-24] MEDS: SOLU-MEDROL IV SCH ×3 (06:12→22:38)
[2019-08-24 06:30] LABS: BASO# 0.01 X1000 (0.0-0.2); EOS# 0.09 X1000 (0.0-0.7); EOS% 0.3 % (0.0-10.0); HEMATOCRIT 43.7 % (42.0-52.0); HEMOGLOBIN 13.9 g/dL (14.0-18.0); IMM GRAN# 0.08 X1000 (0.0-0.04); IMM GRAN% 0.3 % (0.0-0.5); LYMPH# 0.92 X1000 (1.2-3.4); LYMPH% 3.5 % (20.5-51.1); MCH 26.1 PG (27-31); MCHC 31.8 g/dL (33-37); MONO# 1.34 X1000 (0.11-0.59); MONO% 5.2 % (1.7-9.3); MPV 12.8 FL (7.4-10.4); NEUT# 23.56 X1000 (1.4-6.5); NEUT% 90.7 % (42.2-75.2); PLT 210 X1000 (130-400); RBC 5.33 XMIL (4.7-6.1); RDW 15.2 % (11.5-14.5)
[2019-08-24] MEDS ORDERED: APRESOLINE IV PRN (06:34)
[2019-08-24] MEDS: PROTONIX PO SCH (07:00)
[2019-08-24 07:09] LABS: CALCIUM 8.5 mg/dL (8.8-10.2); CREATININE 1.8 mg/dL (0.7-1.2)
[2019-08-24 07:31] LABS: POTASSIUM 4.2 mmol/L (3.5-5.1)
--- NOTE | 2019-08-24 07:39 | EKG Report ---
Test Performed on : 08/24/2019 07:07:43 AM Test Reason : abnormal ekg Blood Pressure : / mmHG Vent. Rate : 090 BPM Atrial Rate : 090 BPM P-R Int : 158 ms QRS Dur : 088 ms QT Int : 360 ms P-R-T Axes : 052 003 270 degrees QTc Int : 440 ms Critical Test Result: Arrhythmia Sinus rhythm. with frequent and consecutive premature ventricular complexes. ST & T wave abnormality, consider inferolateral ischemia Abnormal ECG When compared with ECG of 23-AUG-2019 11:42, (Unconfirmed) T wave inversion now evident in Inferior leads QT has shortened Confirmed by Chandra BOONE, Eben Del Rosario ([id number]) on 08/25/2019 7:01:47 PM
[2019-08-24 08:35] LABS: LYMPHS 4 % (21-51); MONO 8 % (1-9); SEGS 88 % (42-75)
[2019-08-24] MEDS: NORVASC PO SCH ×2 (09:00→22:39)
[2019-08-24] MEDS: LANTUS INSULIN SUBQ SCH ×2 (09:00→22:47)
[2019-08-24] MEDS: HEPARIN SUBQ SCH ×2 (09:00→22:38)
[2019-08-24] MEDS: ASPIRIN PO SCH (09:00)
[2019-08-24] MEDS: COREG PO SCH ×2 (09:00→22:38)
[2019-08-24] MEDS: HUMALOG SUBQ SCH ×4 (09:03→22:39)
[2019-08-24] MEDS: COZAAR PO SCH (09:30)
--- NOTE | 2019-08-24 13:47 | ORTHOPAEDICS PROGRESS NOTE ---
DATE: 08/24/2019 SUBJECTIVE: Mr. Barriga is lying in bed this morning. He is feeling a lot better. He says his arm really does not hurt much at all. It popped last night when he was moving it, and after that it felt great. OBJECTIVE: Right upper extremity exam, he has very good range of motion of the shoulder. In both active and passive range of motion, it really does not elicit any pain in the shoulder. He is neurovascularly intact of right upper extremity. ASSESSMENT: Right shoulder pain. PLAN: I discussed with Mr. Barriga that the likelihood of him having a septic shoulder is extremely low since he really has no pain in the shoulder with range of motion and he has gotten better on anti-inflammatory medication, so I am okay with him being discharged home, and I can follow him up in the clinic on an outpatient basis. cc: Emerson Church MD
--- NOTE | 2019-08-24 13:50 | PROGRESS NOTE ---
DATE: 08/24/2019 SUBJECTIVE: The patient reports pain in the right shoulder and also in the chest wall anteriorly. It is getting much better. No fever or chills reported. OBJECTIVE: Vital Signs: Temperature 97.9 degrees, heart rate 90, respiratory rate 14, blood pressure 156/93, O2 saturation 95% on 2 L nasal cannula. General: This is a 64-year-old male, lying in bed, in no acute distress. Cardiovascular: S1, S2 heard. No murmurs, gallops, or rubs. Regular rate and rhythm. There is a reproducible chest pain noted in the sternal area. Respiratory: Clear bilaterally to auscultation. No work of breathing or using accessory muscles. Abdomen: Soft, nontender to palpation. Bowel sounds present. No organomegaly. Extremities: No clubbing, cyanosis, or edema. Right shoulder is swollen, but definitely less in comparing with yesterday and today the patient is able to move it. Neurological exam: The patient is alert and oriented x3. Moves all 4 extremities. LABORATORY DATA: White cell count 26.0, hemoglobin 13.9, hematocrit 43.7, platelets 210,000. BMP remarkable for creatinine 1.3 with glucose 305, hemoglobin A1c 9.1. ASSESSMENT AND PLAN: 1. Chest pain. The patient was admitted for this condition. Upon my examination today, I think this chest pain is musculoskeletal. He has been evaluated with these high sensitive troponins. With electrocardiogram not showing any specific ST or T-waves abnormality, a chest pain that is musculoskeletal, the likelihood of having an acute coronary syndrome is very low. Because of bacteremia with gram-positive cocci, a transthoracic echo is going to be done. We will follow results. 2. Acute gout flare up involving the right shoulder. The patient reports that with IV steroids, he is getting better. Actually, he has been placed on Solu-Medrol 60 mg IV q.8 hours. With this good response to this medication, we will decrease the doses to 40 mg IV q.8 hours and tomorrow if he continues to improve, we will continue weaning off from that medication. Colchicine has been stopped because of his renal function. Orthopedics has been consulted. They do not think that the joint is infected, but they may need to do an aspiration of the joint if needed. We will follow recommendations. Also, Infectious Disease has been consulted. Initially, he has been placed on vancomycin, but because of renal dysfunction and auditory function, that medication has been change it to daptomycin. 3. Diabetes mellitus type 2. Of course, the blood sugar has been really high because of the steroids. We have started Lantus on this patient. We will continue with Accu-Chek before meals and also at bedtime and sliding scale insulin as well. 4. Acute on chronic kidney disease. Creatinine continues to be at baseline, that is 1.8. We will continue to monitor. 5. Disposition. We will continue to monitor this patient closely. We are going to send this patient to a regular room today. cc: Kunal Montez MD MTDD
[2019-08-24] MEDS: CUBICIN 600 MG in NS 100 ML IV SCH (16:18)
[2019-08-24] MEDS ORDERED: NS IV SCH (21:30)
[2019-08-24] MEDS ORDERED: VANCOMYCIN IV SCH (21:30)
--- NOTE | 2019-08-24 21:36 | PROGRESS NOTE ---
DATE: 08/24/2019 SUBJECTIVE: The patient reports dramatic improvement in his right shoulder pain with treatment. There has been no chest pain. OBJECTIVE: Blood pressure 172/78, heart rate 93, oxygen saturation 94% on room air. There is no significant jugular venous distention.Chest: Clear to auscultation. Cardiac Exam: Reveals a regular rate and rhythm without appreciable murmur or gallop. There is no evidence of peripheral edema. LABORATORY DATA: Includes a white blood cell count 26,000, hematocrit 43.7, hemoglobin 13.9, platelet count 210,000. Sodium 138, potassium 4.2, chloride 98, carbon dioxide 24, BUN 47, creatinine 1.8. Glucose 305. IMPRESSIONS: 1. Acute right shoulder arthritis, likely cause for patient's clinical presentation. 2. Blood cultures positive for gram-positive cocci. Identification and sensitivity is pending. 3. Atherosclerotic coronary disease. Patient continues without angina. He did manifest low, very mild nonspecific elevation in troponins using high sensitivity assay, but CPKs are normal. Doubt acute coronary syndrome. 4. Type 2 diabetes mellitus, poorly controlled. 5. Gout. 6. Previous cerebrovascular accident. 7. Hypertension. 8. Nephrolithiasis. RECOMMENDATIONS: 1. Continue medical management for patient's coronary atherosclerosis. 2. Follow up blood culture identification and sensitivities. cc: Quang Mendenhall MD
[2019-08-25] MEDS: SOLU-MEDROL IV SCH ×2 (06:15→14:16)
[2019-08-25] MEDS: HUMALOG SUBQ SCH ×4 (06:20→21:21)
[2019-08-25] MEDS: DILAUDID IV PRN (06:28)
[2019-08-25 06:55] LABS: BASO# 0.01 X1000 (0.0-0.2); HEMATOCRIT 43.6 % (42.0-52.0); HEMOGLOBIN 13.9 g/dL (14.0-18.0); IMM GRAN# 0.16 X1000 (0.0-0.04); IMM GRAN% 0.7 % (0.0-0.5); LYMPH# 0.94 X1000 (1.2-3.4); MCH 25.9 PG (27-31); MCHC 31.9 g/dL (33-37); MCV 81.2 FL (81-99); MONO# 1.51 X1000 (0.11-0.59); MONO% 6.4 % (1.7-9.3); MPV 12.1 FL (7.4-10.4); NEUT# 20.84 X1000 (1.4-6.5); NEUT% 88.9 % (42.2-75.2); PLT 224 X1000 (130-400); RBC 5.37 XMIL (4.7-6.1); RDW 15.3 % (11.5-14.5); WBC 23.46 X1000 (4.8-10.8)
[2019-08-25 07:11] LABS: CALCIUM 8.4 mg/dL (8.8-10.2); CREATININE 1.9 mg/dL (0.7-1.2); POTASSIUM 4.1 mmol/L (3.5-5.1)
--- NOTE | 2019-08-25 07:29 | EKG Report ---
Test Performed on : 08/25/2019 07:19:38 AM Test Reason : abnormal ekg Blood Pressure : / mmHG Vent. Rate : 093 BPM Atrial Rate : 093 BPM P-R Int : 158 ms QRS Dur : 100 ms QT Int : 372 ms P-R-T Axes : 045 004 261 degrees QTc Int : 462 ms Sinus rhythm. with occasional premature ventricular complexes. Marked ST abnormality, possible inferior subendocardial injury Abnormal ECG When compared with ECG of 24-AUG-2019 07:07, (Unconfirmed) No significant change was found Confirmed by Chandra BOONE, Eben Del Rosario ([id number]) on 08/25/2019 7:03:20 PM
[2019-08-25] MEDS: PROTONIX PO SCH (07:42)
[2019-08-25 07:48] LABS: BANDS 1 % (0-1); LYMPHS 4 % (21-51); MONO 6 % (1-9); SEGS 89 % (42-75)
[2019-08-25] MEDS: LANTUS INSULIN SUBQ SCH ×2 (09:04→21:24)
[2019-08-25] MEDS: HEPARIN SUBQ SCH ×2 (09:04→21:20)
[2019-08-25] MEDS: NORVASC PO SCH ×2 (09:04→21:20)
[2019-08-25] MEDS: COZAAR PO SCH (09:04)
[2019-08-25] MEDS: ASPIRIN PO SCH (09:04)
[2019-08-25] MEDS: COREG PO SCH ×2 (09:04→21:18)
[2019-08-25] MEDS ORDERED: COLCRYS PO PRN (12:50)
[2019-08-25] MEDS: KEFZOL 2 GM/D5W 2 GM/50 ML IVPB IV SCH ×2 (13:50→21:17)
--- NOTE | 2019-08-25 18:50 | INFECTIOUS DISEASE PROGRESS NO ---
DATE: 08/25/2019 PRESENT ILLNESS: The patient has an oxacillin sensitive Staph aureus bacteremia. I think this occurred because the patient was put on a new medication for diabetes, and he was allergic to it and he started scratching himself all over, and he had multiple lesions of which some of them bled. I think that the ones that bled could have served as portals of entry for an oxacillin Staph aureus that was normal jorge luis on the patient's skin. RECOMMENDATIONS: I have switched the patient to Ancef. Some of the side effects of the antibiotic including rash and diarrhea have been explained to the patient who agrees with treatment. DISCUSSION: As mentioned above, the patient's doctor switched his diabetic medicine, and the patient started scratching himself all over. He had some lesions that were actually bleeding. I think that the organism entered into the bloodstream through those medications. His medicine has been stopped, and he is not scratching anymore. MEDICATIONS: The patient was on daptomycin, and I switched him today to Ancef. Some of the side effects of Ancef including rash and diarrhea have been explained to the patient who agrees with treatment. PHYSICAL EXAMINATION: Vital Signs: Temperature is 99.4 degrees, pulse 97, respirations 16, blood pressure is 175/94. General: This is a somewhat ill-appearing elderly male. He is in no acute distress, however. Head, eyes, ears, nose, and throat: He can hear my spoken words and see near objects. He does not have any drainage coming from his right ear, which he says is hurting him. With an otoscope, I examined the ear. The ear canal is not erythematous, and I did not see any evidence of fluid or purulence behind the patient's right tympanic membrane. The ear itself was not erythematous all over. PLAN: My plan is to switch the patient today from daptomycin to Ancef. Forty-eight hours after the patient starts Ancef, I have ordered blood cultures to be taken again. If 48 hours after the blood cultures have been drawn and they are still sterile, then our plan is to put a PICC in the patient and send him home on IV Ancef for a total of 14 days. He will have had 2 days in the hospital where the repeat blood cultures would have been negative and therefore when he goes home, he will only have to take 12 more days of Ancef. I checked with the patient, and he does not have any foreign material in them that would necessitate treating him for a total of 6 weeks with Ancef. The patient will have follow up in my office. COMORBIDITIES: The patient had an allergic reaction to a medicine and scratched himself, and this is probably how he became bacteremic. The patient is a diabetic, and he has previously had a stroke, and he also is obese. cc: Angelo Portillo MD
--- NOTE | 2019-08-25 19:49 | PROGRESS NOTE ---
DATE: 08/25/2019 SUBJECTIVE: The patient continues to feel better. Right shoulder has very little pain at this point. He still has some pain in his right sternoclavicular joint. There has been no chest pain, nor dyspnea. He relates previous heart issues in the past and, upon discussions with his family, it sounds like he had severe cardiomyopathy more than 10 years ago at a time when he drank quite a bit of alcohol. His left ventricular ejection fraction was reportedly down to around 20% at that time and, since then, he has completely stopped alcohol use and his current left ventricular ejection fraction is normal. OBJECTIVE: Blood pressure 152/84, heart rate 91, oxygen saturation 93% to 97% on room air. There is no significant jugular venous distention. The chest is clear to auscultation bilaterally. Palpation of right sternoclavicular joint demonstrates some tenderness and fluctuance in right sternoclavicular joint, suggesting possible effusion in this joint. Cardiac exam reveals a regular rate and rhythm without appreciable murmur or gallop. Extremities are noteworthy for some recent excoriations which the patient relates to a reaction to 1 of his diabetic medications that caused intense itching. LABORATORY DATA: Includes a white blood cell count of 23.46, hematocrit 43.6, hemoglobin 13.9, platelet count 224,000. Sodium 135, potassium 4.1, chloride 97, carbon dioxide 24, BUN 64, creatinine 1.9, glucose 364. Blood cultures positive for Staphylococcus aureus which is sensitive to oxacillin. IMPRESSION: 1. Improving acute right shoulder arthritis and probable right sternoclavicular joint arthritis. 2. Blood cultures positive for Staphylococcus aureus, which is oxacillin sensitive. 3. 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 It sounds like patient had coronary angiography at [facility] at that time and he relates he had no significant coronary stenosis. Left ventricular ejection fraction now documented as improved and he has been abstinent from alcohol ever since cardiomyopathy was initially diagnosed. 4. Type 2 diabetes mellitus, poorly controlled. 5. Gout. 6. Previous cerebrovascular accident. 7. Hypertension. 8. Nephrolithiasis. RECOMMENDATIONS: 1. Continue antibiotic therapy directed at Staph aureus, oxacillin-sensitive. 2. Consider aspiration of right sternoclavicular joint. 3. Suspect transesophageal echocardiography would be helpful to help define duration of antibiotic therapy. This has been discussed with the patient several times. Will tentatively schedule for Wednesday morning and hold patient's food Wednesday evening. cc: Quang Mendenhall MD
[2019-08-25] MEDS: PRAVACHOL PO SCH (21:19)
[2019-08-25] MEDS: CATAPRES PO SCH (21:19)
[2019-08-25] MEDS: GLUCOTROL PO SCH (21:20)
[2019-08-26] MEDS: COLCRYS PO SCH ×3 (04:16→22:25)
--- NOTE | 2019-08-26 04:27 | PROGRESS NOTE ---
DATE: 08/25/2019 SUBJECTIVE: The patient has no major complaints, but apparently he is complaining of pain in his right sternoclavicular joint. OBJECTIVE: Vital Sign s: Blood pressure is 158/87, heart rate 88, respiratory rate 20, temperature 98 degrees, O2 saturation is 93% on room air. Cardiovascular: Regular rate and rhythm. Pulmonary: Bilateral breath sounds. Clear to auscultation. GI: Soft, nontender, nondistended. Bowel sounds are positive. LABORATORY DATA: White count 23, hemoglobin and hematocrit 13 and 43, platelets 224,000. MICROBIOLOGY: Showed MSSA in his blood cultures from 08/22/2019, he has not had any blood cultures since then. PROBLEM LIST: 1. Possible septic arthritis of the right shoulder and right acromioclavicular joint. We will continue IV antibiotics. There is a concern over possible infected sternoclavicular joint, which may require I and D and drainage. I do not think this is gout. I am going to go and stop the steroids especially in lieu of his MSSA bacteremia and likely the arthritis is secondary. He certainly may have concurrently gout, but orthopedics, I have Dr. Crowe to re-evaluate the patient after Dr. Mendenhall expressed concern over the sternoclavicular joint being inspected and Dr. Ferrara having evaluated the patient because he may need further treatment, I and D, arthrocentesis which would we have to be completed by a Cardiothoracic Surgeons so that will be re-evaluated tomorrow. 2. MSSA bacteremia. Dr. Portillo feels like this is likely related to excoriations achieved from an allergic reaction to theToujeo insulin he had been put on after he was taken off of Tresiba.. He is back on Tresiba but he is off the Toujeo and we will continue to monitor closely. He is on cefazolin,Dr. Portillo wants to wait until Wednesday to get blood cultures. He has been adequately treated. We could do blood cultures sooner, but those will have to be cleared before for a PICC line and 2 weeks of IV antibiotics. He is on daptomycin. 3. Type 2 diabetes is stable. 4. Chest pain is unlikely to be cardiac, most likely related to his infected joints. 5. Chronic renal failure is stable. 6. Disposition. Pending his clinical status. Again I would make sure Orthopedics has evaluated his AC joint and it looks like Dr. Swain has order a CEDRICK for Wednesday to evaluate for to truly rule out endocarditis. 7. Diabetes. We will continue to Tresiba and continue to follow. cc: Flex Herr MD
[2019-08-26] MEDS: KEFZOL 2 GM/D5W 2 GM/50 ML IVPB IV SCH ×3 (05:07→22:24)
[2019-08-26] MEDS: PROTONIX PO SCH ×2 (05:07→06:11)
[2019-08-26] MEDS: HUMALOG SUBQ SCH ×4 (06:42→22:24)
[2019-08-26] MEDS ORDERED: INSULIN PEN NEEDLES ONE (07:06)
[2019-08-26 07:22] LABS: BASO# 0.01 X1000 (0.0-0.2); HEMATOCRIT 37.2 % (42.0-52.0); HEMOGLOBIN 12.1 g/dL (14.0-18.0); IMM GRAN% 0.5 % (0.0-0.5); LYMPH# 1.31 X1000 (1.2-3.4); LYMPH% 6.4 % (20.5-51.1); MCH 26.3 PG (27-31); MCHC 32.5 g/dL (33-37); MCV 80.9 FL (81-99); MONO# 1.49 X1000 (0.11-0.59); MONO% 7.3 % (1.7-9.3); MPV 12.1 FL (7.4-10.4); NEUT# 17.53 X1000 (1.4-6.5); NEUT% 85.8 % (42.2-75.2); PLT 189 X1000 (130-400); RDW 15.4 % (11.5-14.5); WBC 20.44 X1000 (4.8-10.8)
[2019-08-26 08:19] LABS: CALCIUM 7.6 mg/dL (8.8-10.2); CREATININE 2.1 mg/dL (0.7-1.2); POTASSIUM 3.7 mmol/L (3.5-5.1)
[2019-08-26] MEDS ORDERED: LOSARTAN POTASSIUM PO SCH (09:00)
[2019-08-26] MEDS ORDERED: DULAGLUTIDE 0.75 UNIT SQ SCH (09:00)
[2019-08-26] MEDS ORDERED: ASPIRIN EC PO SCH (09:00)
[2019-08-26] MEDS ORDERED: TOUJEO SOLOSTAR SUBQ SCH (09:00)
[2019-08-26] MEDS ORDERED: ZYLOPRIM PO SCH (09:00)
[2019-08-26] MEDS: COZAAR PO SCH (09:35)
[2019-08-26] MEDS: PEPCID PO SCH (09:35)
[2019-08-26] MEDS: NORVASC PO SCH ×2 (09:35→22:27)
[2019-08-26] MEDS: GLUCOTROL PO SCH ×2 (09:35→22:26)
[2019-08-26] MEDS: HEPARIN SUBQ SCH ×2 (09:36→22:24)
[2019-08-26] MEDS: ASPIRIN PO SCH (09:36)
[2019-08-26] MEDS: ZYRTEC PO SCH (09:36)
[2019-08-26] MEDS: COREG PO SCH ×2 (09:36→22:25)
[2019-08-26] MEDS: CATAPRES PO SCH ×2 (09:36→22:25)
[2019-08-26] MEDS: TRESIBA FLEXTOUCH U-100 SUBQ SCH (09:37)
--- NOTE | 2019-08-26 12:30 | PROGRESS NOTE ---
DATE: 08/26/2019 SUBJECTIVE: Patient reports still complaining of some pain in the right shoulder and right acromioclavicular joint, as well. OBJECTIVE: Vital Signs: Temperature 98.1 degrees, heart rate 75, respiratory rate 18, blood pressure 144/84, O2 saturation 96% on room air. General: This is a 64-year-old male lying in bed in no acute distress. Cardiovascular: S1, S2 heard. No murmurs, gallops or rubs. Regular rate and rhythm. Respiratory: Clear bilaterally to auscultation. No work of breathing or using accessory muscles. Abdomen: Soft, nontender to palpation, nondistended. Bowel sounds present. No organomegaly. Extremities: No clubbing, cyanosis or edema. Peripheral pulses present in both legs. 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 Neurological: Patient is alert and oriented x3. Moves 4 extremities. LABORATORY DATA: MSSA in blood cultures. ASSESSMENT AND PLAN: 1. Possible septic arthritis of the right shoulder and right acromioclavicular joint: There was a suspicion for right acromioclavicular joint septic arthritis and as per Cardiology's recommendation we have reconsulted Orthopedics. Will see what they think. Hopefully, will do an aspiration with that joint. 2. Methicillin-sensitive Staphylococcus aureus bacteremia: Patient is on cefazolin. Dr. Portillo of Infectious Disease is following this patient. Apparently, will repeat blood cultures on Wednesday. 3. Diabetes mellitus type 2: Continue with sliding-scale insulin and Accu-Cheks before meals and also at bedtime. 4. Chest pain: Unlikely to be cardiac, most likely related to his infected joint. In any case, because of this bacteremia, patient is going to have transesophageal echo done by Cardiology on Wednesday. Will see what it shows. 5. Chronic kidney disease is stable: Will continue to monitor. DISPOSITION: At this point, will see what Orthopedics has to say and will see what the CEDRICK shows on Wednesday and will go from there. cc: Kunal Montez MD
[2019-08-26] MEDS: DILAUDID IV PRN ×3 (15:10→23:41)
[2019-08-26] MEDS: NORCO-10 PO PRN (22:27)
[2019-08-26] MEDS: PRAVACHOL PO SCH (22:27)
--- NOTE | 2019-08-27 00:50 | CONSULTATION ---
DATE OF CONSULTATION: 08/26/2019 CHIEF COMPLAINT: Pain, swelling, redness of right sternoclavicular joint. HISTORY OF PRESENT ILLNESS: The patient is a very pleasant, 64-year-old male, who presented to his primary care physician yesterday with the above chief complaint. He was sent to the emergency room for evaluation. Blood cultures were drawn a couple of days earlier secondary to illness, and showed that he was MSSA positive bacteremia. He was admitted and started on IV antibiotics. He reports yesterday, he had a considerable amount of redness and puffiness in the right sternoclavicular joint, and had inability to move the shoulder secondary to pain. He states now at 3:40 on the afternoon after admission last night with the IV antibiotics, he is nearly 100% better. He states the redness and swelling have completely resolved. He states range of motion in his shoulder is back to full and normal. He states he has had no fevers, chills. He states it did come on rather quickly, but seems to have resolved rather quickly as well. The patient states he has no other complaints at this point. PAST MEDICAL HISTORY: Coronary artery disease, history of CVA, diabetes mellitus, and hypertension. PAST SURGICAL HISTORY: Herniorrhaphy secondary to incarcerated abdominal hernia. CURRENT MEDICATIONS: As per list in chart and reviewed with patient. DRUG ALLERGIES: None. SOCIAL HISTORY: Patient reports he has a remote history of tobacco and alcohol use. He states he uses no sort of tobacco today. He states he very rarely has even a beer with friends. He is disabled secondary to health. 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 FAMILY HISTORY: Reviewed and noncontributory. REVIEW OF SYSTEMS: A 10-point review of systems was obtained with the above-noted pertinent positives. PHYSICAL EXAMINATION: Patient has no erythema or warmth noted at the right sternoclavicular joint. He demonstrates full range of motion of the shoulder. There is pain at the AC with cross- chest abduction. There is positive impingement sign, but no [*]or weakness noted. IMPRESSION: Septic right sternoclavicular joint. PLAN: The patient is responding very well to his current IV antibiotic regimen. I recommend continuation of this. In talking to the nurse, it sounds like he is scheduled for a PICC line for continued IV antibiotics at home. I think this is certainly appropriate with his medical history. I reviewed a home exercise program that I would like him to do at home as well as while in the hospital. He will be released from orthopedic care at this point. He may follow up with me in the outpatient clinic. cc: Quang Rosado, DO
[2019-08-27] MEDS: KEFZOL 2 GM/D5W 2 GM/50 ML IVPB IV SCH ×3 (06:47→20:29)
[2019-08-27] MEDS: PROTONIX PO SCH (06:47)
[2019-08-27] MEDS: HUMALOG SUBQ SCH ×4 (06:48→21:33)
[2019-08-27] MEDS: DILAUDID IV PRN ×2 (06:48→10:35)
[2019-08-27] MEDS: TRESIBA FLEXTOUCH U-100 SUBQ SCH (10:37)
[2019-08-27] MEDS: HEPARIN SUBQ SCH ×2 (10:37→20:28)
[2019-08-27] MEDS ORDERED: CHLORASEPTIC SPRAY MT PRN (13:38)
--- NOTE | 2019-08-27 14:07 | PROGRESS NOTE ---
DATE: 08/27/2019 SUBJECTIVE: This morning, Mr. Barriga refers to be hurting in his throat whenever he has tried to swallow. He is also having a lot of pain to the right sternoclavicular joint. OBJECTIVE: Vital Signs: Blood pressure is 178/96, pulse of 73, respiration is 16, temperature 98.4 degrees. General: Mr. Barriga is a 63-year-old, male. He is in bed. No cardiopulmonary distress. HEENT: Mucosa is pink and moist. Anicteric. Acyanotic. Neck: Supple. Chest: Good air entry bilaterally. There are no crepitations, no rhonchi. Cardiovascular: Regular rate and rhythm. No murmurs, no rubs, no gallops. GI: Abdomen is soft, nontender. Bowel sounds present. Extremities: No pedal edema. PEDIATRIC DERMATOLOGIST: The patient is awake, alert, and oriented. Musculoskeletal: There is swelling over the right sternoclavicular joint, which is extremely tender to palpation and seems to be mildly fluctuant. The patient also has limited mobility of the right shoulder. MICROBIOLOGY: So far, blood culture shows Staph aureus, which is oxacillin sensitive. LABORATORY DATA: Laboratory data has been reviewed. WBC is 20.44, hemoglobin is 12.1, platelet count of 189,000. Chemistry is also reviewed. Glucose is 107. ASSESSMENT: 1. Methicillin-sensitive Staphylococcus aureus bacteremia, most likely coming from the right sternoclavicular joint infection. The patient has been switched to Ancef. Repeat blood culture has been done today. 2. Right sternoclavicular joint septic arthritis. The patient has been evaluated also by Orthopedics. It appears from their documentation that they will continue with intravenous antibiotics and they will re-evaluate. I think the patient is having more symptoms today, and the joint looks swollen and fluctuant and tender. I think he probably needs the joint to be relieved. Will wait for Orthopedics to re-evaluate him today, and go from there. 3. Diabetes mellitus with presenting A1c of 9.1. Glucose is better controlled. The patient is on insulin regimen, as well as Trulicity from home. 4. Hypertension. Will continue with medications. cc: Harsh Alvarez MD
[2019-08-27] MEDS: ZYRTEC PO SCH (16:08)
[2019-08-27] MEDS: PEPCID PO SCH (16:08)
[2019-08-27] MEDS: NORVASC PO SCH ×2 (16:09→20:28)
[2019-08-27] MEDS: COREG PO SCH ×2 (16:09→20:28)
[2019-08-27] MEDS: COZAAR PO SCH (16:09)
[2019-08-27] MEDS: COLCRYS PO SCH ×2 (16:09→20:28)
[2019-08-27] MEDS: CATAPRES PO SCH ×2 (16:09→20:28)
[2019-08-27] MEDS: GLUCOTROL PO SCH ×2 (16:09→20:27)
[2019-08-27] MEDS: ASPIRIN PO SCH (16:10)
[2019-08-27] MEDS: NORCO-10 PO PRN (17:01)
[2019-08-27 18:44] LABS: INR 1.09; PROTIME 14.2 Seconds (11.0-16.0)
[2019-08-27] MEDS: PRAVACHOL PO SCH (20:28)
[2019-08-28] MEDS: KEFZOL 2 GM/D5W 2 GM/50 ML IVPB IV SCH ×4 (04:04→22:21)
[2019-08-28] MEDS: PROTONIX PO SCH (06:07)
[2019-08-28] MEDS: HUMALOG SUBQ SCH ×4 (06:52→23:26)
--- NOTE | 2019-08-28 10:00 | PROGRESS NOTE ---
DATE: 08/23/2019 SUBJECTIVE: He came in for right shoulder pain for about 2 or 3 days. His primary care doctor is Dr. Dk Rhodes. He is a 64-year-old, who had a history of gout, gouty arthritis, hyperlipidemia, hypertension, previous CVA, coronary artery disease, as well as diabetes mellitus. He presented to hospital with pain, noticed his right shoulder region was hurting, pointed to around the right sternal clavicle region, but was hurting more in the shoulder itself when he came in. PAST MEDICAL HISTORY: Diabetes mellitus type 2, coronary artery disease, previous CVA, hypertension, gout, hyperlipidemia. Ronda he had acute gouty flare up; was put on some steroids and colchicine. Dr. Mendenhall was consulted. They found gram-positive cocci bacteremia. Right shoulder pain aggravated with movement and concerned about infection in that shoulder. Has a history of atherosclerotic coronary artery disease. Preliminary indication for echocardiogram is that the left ventricular ejection fraction was normal. I think he is planning on a transesophageal echo today. Had a chest CT on the , mild bibasilar subsegmental atelectasis. No evidence of other acute process. Infectious Disease was consulted on 08/25. The patient has oxacillin sensitive Staph aureus bacteremia and believes this may have occurred. He had a new medication for diabetes that he was allergic to, and started scratching himself all over, multiple lesions, some of them bled. I think these could have served as portals of entry for his infection. EXAM: General: Today he is awake and alert, comfortable, seems to understand the plan of care. Vital Signs: Temperature 97.9 degrees, pulse 82, respirations 22, blood pressure 151/78. Eyes: Pupils are equal and round. Lungs: Clear in all lung chirinos. Cardiovascular exam: Regular rhythm and rate without murmur or S3. Input and Output: Urine output is 2000 mL. ASSESSMENT AND PLAN: 1. Methicillin sensitive Staphylococcus aureus bacteremia, likely coming from his right sternoclavicular joint infection. They have switched him to Ancef and replete blood cultures were done. 2. Right sternoclavicular joint septic arthritis. Patient has been evaluated by Orthopedics, appears to be documentation. They have continued on intravenous antibiotics and re-evaluate. So, I think the plan is to get a PICC line. I think they are going to do a transesophageal echocardiogram and make sure there are no vegetations. 3. Diabetes mellitus type 2. Hemoglobin A1c was 9.1. Continue pattern sugars. 4. Hypertension. REVIEW OF HIS ORDERS: I do not see any change. He is on cefazolin 2 g IV q. 8 hours. REVIEW OF HIS LABS: His lab from the : White count was 20,440, hematocrit 37, platelet count 189,000. Chemistry: Just mainly blood sugar 107, 166, 315 and 227. cc: Tan Gusman MD
[2019-08-28] MEDS ORDERED: XYLOCAINE 2% VISCOUS ONE (10:12)
[2019-08-28] MEDS ORDERED: XYLOCAINE 4% TOPICAL SOLUTION ONE (10:12)
[2019-08-28] MEDS ORDERED: DIPRIVAN 1% ONE (11:22)
[2019-08-28] MEDS ORDERED: ANESTHESIA PB SET 88 IN 5742 ONE (11:31)
[2019-08-28] MEDS ORDERED: CLAVE TWINSITE 32 IN 11959 ONE (11:31)
[2019-08-28] MEDS ORDERED: NS 500 ML ONE (11:31)
--- NOTE | 2019-08-28 12:28 | Transesophageal Echocardiogram ---
DATE: 08/28/2019 PHYSICIAN: Dr. Wong REQUESTING PHYSICIAN: Dr. Mendenhall CLINICAL INDICATIONS: Suspected endocarditis. PROCEDURE: Transesophageal echocardiography DESCRIPTION: The patient was consented by Dr. Mendenhall and was brought to the cardiac analytical lab technician in the fasting state. He received intravenous propofol under the anesthesia services of Dr. Osorio. The throat was anesthetized with Hurricaine and viscous lidocaine. Esophagus was intubated without difficulty. Multiple views of the cardiac structures were obtained. The following is a summary of the main findings. FINDINGS: The aortic valve is a 3-cusp structure without endocardial vegetation. Mitral valve looks anatomically normal. It shows mild degree of regurgitation. Left atrium and its appendage are normal. Flow velocities are normal. There is a spontaneous echocontrast noted throughout the entire study. Interatrial septum is intact. There was no indication of shunt across the septum after injection of agitated saline. Tricuspid valve is anatomically normal. Color flow mapping is unremarkable. Pulmonic valve is anatomically normal. Color flow mapping is unremarkable. Right ventricle is normal in size and function. The left ventricle shows mildly decreased function. Ejection fraction in the order of 45% to 50%. Descending thoracic aorta shows mild degree of plaque without any obvious ulceration or debris. There is no pericardial effusion. The pulse wave Doppler of pulmonary venous flow is normal. The patient tolerated this procedure well. SUMMARY: This transesophageal echocardiogram is negative for the presence of endocardial vegetation. Clinical correlation is recommended. cc: MD Quang Chavez MD
[2019-08-28] MEDS: DILAUDID IV PRN ×2 (13:02→16:41)
[2019-08-28] MEDS: HEPARIN SUBQ SCH ×2 (13:03→23:26)
[2019-08-28] MEDS: TRESIBA FLEXTOUCH U-100 SUBQ SCH (13:03)
--- NOTE | 2019-08-28 16:56 | INFECTIOUS DISEASE PROGRESS NO ---
DATE: 08/28/2019 PRESENT ILLNESS: The patient initially had an oxacillin-sensitive Staphylococcus aureus bacteremia which I think occurred after he had a bad allergic reaction to a medication. The patient was scratching himself all over, and I think he became bacteremic from that. Unfortunately now the patient appears to have developed a septic right-sided sternoclavicular joint arthritis. MEDICATIONS: The patient is on Ancef. He has been on a dose of 2 g IV every 8 hours but his kidney function continues to deteriorate and I am going to decrease the dose of Ancef to 2 g IV every 12 hours. PHYSICAL EXAMINATION: Vital Signs: Temperature is 97.9 degrees, pulse 82, respirations 22, blood pressure 151/78. General: This is an ill-appearing elderly male. He does not appear to be in any acute distress, however, he is having pain in the sternoclavicular joint area and with some radiation into the neck. Head/eyes/ears/nose/throat: He can hear my spoken words and see near objects. He does not have any white coating on his tongue. Thorax: Patient has a fluctuant right-sided sternoclavicular joint. The joint is very tender also. Lungs: Clear to auscultation. Cardiovascular: Heart rate is regular. Abdomen: Soft and nontender. Cardiovascular: Heart rate is regular. Abdomen: Soft and nontender. Neurologic: The patient is awake. He can move his extremities. There is no tremor. Bones, joints, muscles: As mentioned above the patient does have a septic sternoclavicular joint arthritis on the right side. He does have some pain with movement with movement of the right shoulder. It could be infected as well. LAB AND X-RAY: [place] [address], hemoglobin 12.1. Platelet count 189,000. Creatinine is 2.1. GFR is 32. Repeat blood cultures are pending. Transesophageal echocardiogram shows no vegetation. ASSESSMENT AND PLAN: Patient has an oxacillin-sensitive Staphylococcus aureus bacteremia and a septic right sternoclavicular joint arthritis, which became infected hematogenously. The patient may have a septic right shoulder also. I am going to decrease the dose of Ancef because of the patient's increased creatinine. I have called [facility] and the plan is to transfer the patient to [facility]. A new cardiothoracic surgeon Dr. Dex Zabala has agreed to see the patient and the patient will be transferred to the service of the hospitalist who then will consult Dr. Zabala. I think the patient needs to have the joint operated on. I think following that the patient should have 6 weeks of IV anti staphylococcal antibiotics such as either Ancef or oxacillin or nafcillin. antibiotics such as either Ancef or oxacillin or nafcillin. The patient's shoulder may also require an aspiration to rule out septic arthritis involving the right shoulder as well. COMORBIDITIES: Patient initially had allergy to 1 of the medicines, which caused him to scratch himself and most likely become bacteremic. From becoming bacteremic the patient's right sternoclavicular joint became infected hematogenously. The patient is a diabetic and previously had a stroke. He also is obese. cc: Angelo Portillo MD
[2019-08-28] MEDS: ASPIRIN PO SCH (19:11)
[2019-08-28] MEDS: CATAPRES PO SCH ×2 (19:12→23:25)
[2019-08-28] MEDS: NORVASC PO SCH ×2 (19:12→23:26)
[2019-08-28] MEDS: ZYRTEC PO SCH (19:12)
[2019-08-28] MEDS: PEPCID PO SCH (19:12)
[2019-08-28] MEDS: GLUCOTROL PO SCH ×2 (19:13→23:25)
[2019-08-28] MEDS: COLCRYS PO SCH ×2 (19:13→23:25)
[2019-08-28] MEDS: COZAAR PO SCH (19:13)
[2019-08-28] MEDS: COREG PO SCH ×2 (19:14→23:25)
[2019-08-28] MEDS: NORCO-10 PO PRN (23:24)
[2019-08-28] MEDS: PRAVACHOL PO SCH (23:25)
[2019-08-29] MEDS: HUMALOG SUBQ SCH ×4 (06:39→23:17)
[2019-08-29] MEDS: NORCO-10 PO PRN ×4 (06:39→20:16)
[2019-08-29] MEDS: PROTONIX PO SCH (06:41)
[2019-08-29] MEDS: HEPARIN SUBQ SCH ×2 (10:55→20:15)
[2019-08-29] MEDS: COLCRYS PO SCH ×2 (10:55→20:16)
[2019-08-29] MEDS: COREG PO SCH ×2 (10:55→20:16)
[2019-08-29] MEDS: COZAAR PO SCH (10:55)
[2019-08-29] MEDS: ZYRTEC PO SCH (10:56)
[2019-08-29] MEDS: NORVASC PO SCH ×2 (10:56→20:16)
[2019-08-29] MEDS: CATAPRES PO SCH ×2 (10:56→20:15)
[2019-08-29] MEDS: GLUCOTROL PO SCH ×2 (10:56→20:15)
[2019-08-29] MEDS: ASPIRIN PO SCH (10:56)
[2019-08-29] MEDS: KEFZOL 2 GM/D5W 2 GM/50 ML IVPB IV SCH ×2 (10:57→23:17)
[2019-08-29] MEDS: PEPCID PO SCH (10:57)
[2019-08-29] MEDS: TRESIBA FLEXTOUCH U-100 SUBQ SCH (10:57)
--- NOTE | 2019-08-29 13:37 | INFECTIOUS DISEASE PROGRESS NO ---
DATE: 08/29/2019 PRESENT ILLNESS: The patient has an oxacillin sensitive Staphylococcus aureus bacteremia with an associated septic sternal clavicular arthritis. MEDICATIONS: The patient is on Ancef. This is day 2 of treatment with it. Day 1 is the first day that the patient's repeat blood cultures are sterile. PHYSICAL EXAMINATION: Vital Signs: Temperature is 98.8 degrees, pulse 91, respirations 14, blood pressure 169/86. General: This is a ill-appearing elderly male. He is in the he is not in any acute distress however. Head/eyes/ears/nose/throat: He can hear my spoken words and see near objects. He does not have any white coating on his tongue. Neck: He moves it without pain. It is not tender or swollen. Thorax: The right sternoclavicular joint is much smaller than it was yesterday. Also, it is a lot less tender. Lungs: Clear to auscultation. Cardiovascular: Heart rate is regular. Abdomen: Soft and nontender. Neurologic: The patient is alert. He can move his extremities. There is no tremor. Bones and joints: The right shoulder is not tender or swollen and can be moved without pain. LAB AND X-RAY: The transesophageal echocardiogram did not see any vegetation. There is no lab or x-ray for today. ASSESSMENT: Patient has Staphylococcus aureus bacteremia with a septic right sternoclavicular joint arthritis which became infected hematogenously. PLAN: The plan now is to continue Ancef IV and it may require a total of 6 weeks for complete eradication of the bacteremia and the septic sternoclavicular joint arthritis. Tomorrow or the next day, we will work on getting a PICC in place and also getting patient ready to go to his rehab facility or possibly home. COMORBIDITY: Diabetes, prior stroke. cc: Angelo Portillo MD MTDD
[2019-08-29] MEDS ORDERED: KEFLEX PO SCH (16:45)
--- NOTE | 2019-08-29 17:05 | PROGRESS NOTE ---
DATE: 08/29/2019 SUBJECTIVE: Mr. Barriga has less pain in that right sternoclavicular joint. He has remained afebrile, temperature 99.1 degrees, pulse 82, respirations 14, blood pressure 156/83. He refused his nighttime medication. He thought he was going to go to [place] and actually he looks so much better that his IV did come out and he refused another IV. OBJECTIVE: Vital Signs: Pulse 80, respirations 14, blood pressure 156/83. Eyes: Pupils are equal and round. Lungs: Lungs are clear in all lung chirinos. Cardiovascular: Regular rhythm and rate without murmur or S3. Abdomen: Soft. Skin: Warm and dry. ASSESSMENT AND PLAN: 1. Oxacillin sensitive Staphylococcus aureus bacteremia with associated septal sternoclavicular arthritis. This is day 2 of [facility]. The first day was the day his cultures were sterile. His IV came out, so we will need to work on probably a PICC line placement. I will give him oral Keflex for the time being. We will give him 500 mg orally every six hours and discuss PICC line placement. 2. Diabetes mellitus type 2. Sugar is under good control. 3. Hypertension. Blood pressure under good control. REVIEW OF ORDERS: At the present time, he is on aspirin 81 mg a day, Coreg 25 mg b.i.d. Catapres 0.3 mg b.i.d., colchicine 0.6 mg b.i.d., Pepcid 20 mg a day, Glucotrol 10 mg b.i.d., Cozaar 50 mg a day, Pravachol 40 mg at bedtime. cc: Tan Gusman MD
[2019-08-29] MEDS: PRAVACHOL PO SCH (20:16)
[2019-08-30] MEDS: NORCO-10 PO PRN ×5 (00:45→23:23)
[2019-08-30] MEDS: PROTONIX PO SCH (06:44)
[2019-08-30 07:19] LABS: BASO# 0.03 X1000 (0.0-0.2); BASO% 0.2 % (0.0-0.8); EOS# 0.71 X1000 (0.0-0.7); EOS% 3.7 % (0.0-10.0); HEMATOCRIT 37.4 % (42.0-52.0); HEMOGLOBIN 11.5 g/dL (14.0-18.0); IMM GRAN# 0.26 X1000 (0.0-0.04); IMM GRAN% 1.4 % (0.0-0.5); LYMPH% 20.8 % (20.5-51.1); MCH 26.1 PG (27-31); MCHC 30.7 g/dL (33-37); MONO# 1.52 X1000 (0.11-0.59); MONO% 7.9 % (1.7-9.3); MPV 11.3 FL (7.4-10.4); PLT 316 X1000 (130-400); RDW 15.9 % (11.5-14.5); WBC 19.22 X1000 (4.8-10.8)
[2019-08-30] MEDS: HUMALOG SUBQ SCH ×4 (07:42→23:22)
[2019-08-30 07:44] LABS: CALCIUM 8.6 mg/dL (8.8-10.2); CREATININE 1.5 mg/dL (0.7-1.2); POTASSIUM 4.7 mmol/L (3.5-5.1)
[2019-08-30] MEDS: PEPCID PO SCH (09:21)
[2019-08-30] MEDS: TRESIBA FLEXTOUCH U-100 SUBQ SCH (09:21)
[2019-08-30] MEDS: COREG PO SCH ×2 (09:22→22:16)
[2019-08-30] MEDS: COLCRYS PO SCH ×2 (09:22→22:16)
[2019-08-30] MEDS: NORVASC PO SCH ×2 (09:22→22:16)
[2019-08-30] MEDS: ZYRTEC PO SCH (09:22)
[2019-08-30] MEDS: ASPIRIN PO SCH (09:22)
[2019-08-30] MEDS: GLUCOTROL PO SCH ×2 (09:22→22:16)
[2019-08-30] MEDS: HEPARIN SUBQ SCH ×2 (09:22→22:17)
[2019-08-30] MEDS: COZAAR PO SCH (09:22)
[2019-08-30] MEDS: CATAPRES PO SCH ×2 (09:22→22:16)
[2019-08-30] MEDS: KEFZOL 2 GM/D5W 2 GM/50 ML IVPB IV SCH (13:57)
[2019-08-30] MEDS: KEFLEX PO SCH ×2 (13:57→22:16)
--- NOTE | 2019-08-30 14:15 | PROGRESS NOTE ---
DATE: 08/30/2019 SUBJECTIVE: Mr. Barriga is feeling better. A little less tenderness in that right sternoclavicular joint. ASSESSMENT AND PLAN: 1. He really does not want an IV and is very resistant to a PICC line. We have had discussions about really the best plan for clearing this infection would be IV Ancef for 6 weeks. I discussed with him. I discussed with him and his family and I think he just really does not want the PICC line. So we will try and set up 6 weeks of p.o. antibiotic. We will discuss with Dr. Portillo and see if we can line that up. Hopefully can go home tomorrow. He remains afebrile. 2. Diabetes mellitus type 2. Sugar is under good control. 3. Hypertension. Blood pressure under good control. cc: Tan Gusman MD
--- NOTE | 2019-08-30 19:33 | INFECTIOUS DISEASE PROGRESS NO ---
DATE: 08/30/2019 PRESENT ILLNESS: The patient has an oxacillin sensitive Staphylococcus aureus bacteremia with an associated septic sternoclavicular arthritis. The patient's right shoulder may possibly be infected, although each day it looks much better and probably is not infected. MEDICATIONS: The patient was on Ancef, but he has refused further IV treatment, and Dr. Gusman has started him on Keflex 500 mg p.o. every 6 hours, with which I thoroughly agree. PHYSICAL EXAMINATION: Vital Signs: Temperature is 98.2 degrees, pulse 77, respirations 20, blood pressure 149/83. General: This is an ill-appearing elderly male. He is in no acute distress. Head/eyes/ears/nose/throat: He can hear my spoken words and see near objects. He does not have any white patches in his mouth. Neck: He moves it without pain. Lungs: Clear to auscultation. Cardiovascular: Heart rate is regular. Thorax: The patient's right sternoclavicular joint area is swollen and slightly fluctuant. It is much less painful and tender than it was a few days ago. Bones, joints, muscles: The right shoulder is also much less tender and the patient is able to move it with much less pain than he did a few days ago. Lungs: Clear to auscultation. Cardiovascular: Regular heart rate. Abdomen: Soft and nontender. Neurologic: The patient is alert. He can move his extremities. He is able to ambulate without trouble. LAB AND X-RAY: CBC shows a white count of 19,220, hemoglobin 11.5, and platelet count 316,000. Creatinine is 1.5. GFR is 47. The patient's blood cultures first turned negative on 08/27/2019. ASSESSMENT AND PLAN: The patient now has told both me and Dr. Gusman that he does not want any further IV antibiotics.We both told the patient that we think he is making a huge mistake, that for a bacteremia, the patient needs at least 2 weeks of treatment with IV antibiotics, and for his infected sternoclavicular joint he needs at least 6 weeks of IV antibiotics, which in this case will be Ancef. The patient said he wanted to try oral antibiotics and again Dr. Gusman and I told him that doing it by oral antibiotics rather than IV antibiotics is not nearly as effective as through the vein, and that we both think he is making a big mistake by taking only oral antibiotics and not through the vein. COMORBIDITIES: Diabetes mellitus and stroke. cc: Angelo Portillo MD MTDD
[2019-08-30] MEDS: PRAVACHOL PO SCH (22:17)
[2019-08-31 01:18] LABS: CALCIUM 8.5 mg/dL (8.8-10.2); CREATININE 1.7 mg/dL (0.7-1.2); POTASSIUM 4.4 mmol/L (3.5-5.1)
[2019-08-31] MEDS: KEFLEX PO SCH ×3 (03:29→14:58)
[2019-08-31] MEDS: NORCO-10 PO PRN ×2 (03:30→12:38)
[2019-08-31] MEDS: KEFZOL 2 GM/D5W 2 GM/50 ML IVPB IV SCH ×3 (04:20→09:21)
--- NOTE | 2019-08-31 05:18 | EKG Report ---
Test Performed on : 08/31/2019 00:42:52 AM Test Reason : change of rhythm Blood Pressure : / mmHG Vent. Rate : 088 BPM Atrial Rate : 088 BPM P-R Int : 154 ms QRS Dur : 090 ms QT Int : 366 ms P-R-T Axes : 053 004 262 degrees QTc Int : 442 ms Sinus rhythm. with occasional premature ventricular complexes. Septal infarct , age undetermined ST & T wave abnormality, consider lateral ischemia Abnormal ECG When compared with ECG of 25-AUG-2019 07:19, No significant change was found Confirmed by Chandra BOONE, Eben Del Rosario ([id number]) on 08/31/2019 12:23:58 PM
[2019-08-31] MEDS: PROTONIX PO SCH (06:45)
[2019-08-31] MEDS: HUMALOG SUBQ SCH ×2 (07:39→11:55)
[2019-08-31] MEDS ORDERED: INSULIN PEN NEEDLES ONE (08:13)
[2019-08-31] MEDS: HEPARIN SUBQ SCH (09:13)
[2019-08-31] MEDS: PEPCID PO SCH (09:13)
[2019-08-31] MEDS: GLUCOTROL PO SCH (09:13)
[2019-08-31] MEDS: COREG PO SCH (09:13)
[2019-08-31] MEDS: ZYRTEC PO SCH (09:14)
[2019-08-31] MEDS: NORVASC PO SCH (09:14)
[2019-08-31] MEDS: COZAAR PO SCH (09:14)
[2019-08-31] MEDS: ASPIRIN PO SCH (09:14)
[2019-08-31] MEDS: COLCRYS PO SCH (09:14)
[2019-08-31] MEDS: CATAPRES PO SCH (09:14)
[2019-08-31] MEDS: TRESIBA FLEXTOUCH U-100 SUBQ SCH (09:15)
--- NOTE | 2019-08-31 10:09 | PROGRESS NOTE ---
DATE: 08/31/2019 He had a good night. I was called, the blood cultures from the 12th, one out of two positive for gram positive cocci. He has been afebrile. His pain is less. He feels better. He is adamant that he does not want a PICC line or an IV. His white count still remains elevated at 19,220 yesterday. I have, on several attempts, pleaded with him to go ahead and get a PICC line and let us get these IV antibiotics for 6 weeks but he is adamant. His family was there. We had a full discussion with them. We will try and arrange, I guess, for p.o. antibiotics and discuss this with Dr. Portillo. His rash is clearing up. He has no further itching or discomfort. PHYSICAL EXAMINATION: Lungs are clear in all lung chirinos. Cardiovascular Examination: Regular rhythm and rate without murmur or S3. Abdomen is soft. Skin is warm and dry. ASSESSMENT AND PLAN: 1. Infection in the right sternoclavicular joint with bacteremia. Recent blood culture from the 12th, one out of two was positive. He refuses intravenous or peripherally inserted central catheter line, and is adamant he wants to antibiotics by mouth. 2. Diabetes mellitus type 2. Sugar is still running a little high. 3. Hypertension. cc: Tan Gusman MD
[2019-08-31 11:16] VITALS: BP 166/73
--- NOTE | 2019-08-31 11:49 | EKG Report ---
Test Performed on : 08/31/2019 11:29:53 AM Test Reason : few seconds V Tachy Blood Pressure : / mmHG Vent. Rate : 077 BPM Atrial Rate : 077 BPM P-R Int : 152 ms QRS Dur : 096 ms QT Int : 392 ms P-R-T Axes : 048 013 242 degrees QTc Int : 443 ms Normal sinus rhythm. ST & T wave abnormality, consider lateral ischemia Abnormal ECG When compared with ECG of 31-AUG-2019 00:42, (Unconfirmed) premature ventricular complexes. are no longer present Criteria for Septal infarct are no longer present Confirmed by Chandra BOONE, Eben Del Rosario ([id number]) on 08/31/2019 12:24:22 PM
[2019-08-31 12:25] LABS: ALB/GLOB RATIO 0.5; ALBUMIN 2.3 g/dL (3.5-5.0); CALCIUM 8.6 mg/dL (8.8-10.2); CREATININE 1.7 mg/dL (0.7-1.2); POTASSIUM 4.9 mmol/L (3.5-5.1); TOTAL BILIRUBIN 0.18 mg/dL (0.20-1.00); TOTAL PROTEIN 6.9 g/dL (6.3-8.3)
--- NOTE | 2019-08-31 14:24 | DISCHARGE SUMMARY ---
ADMISSION DATE: 08/22/2019 DISCHARGE DATE: 08/31/2019 BRIEF HISTORY: Patient of Dr. Dk Rhodes, presented with right shoulder pain for about 2 to 3 days. A 64-year-old has a history of gout, hyperlipidemia, hypertension, previous CVA, coronary artery disease as well as diabetes mellitus who presented to the hospital because of pain noticed in his right shoulder region the last 2 to 3 days. He describes the pain as sharp and constant, nonradiating. No known alleviating factors. It is made worse with activity. Indicates that he had gout flare involving his shoulder about 3 months ago. Typically he has gout can flare by eating the wrong foods including seafood or red meat. On presentation to the emergency room he reported that he had allergic reaction with a lot itching and urticaria. He had areas of excoriation all over on his legs and his trunk and around his shoulder. PAST MEDICAL HISTORY: 1. Diabetes mellitus. 2. Coronary artery disease. 3. Previous CVA. 4. Hypertension. 5. Gout. 6. Hyperlipidemia. SOCIAL HISTORY: Denied any current history of cigarette smoking, alcohol or drug abuse present. ADMISSION DIAGNOSES: 1. Acute gouty flare with right shoulder. He was put on some steroids and colchicine. X-ray of the right shoulder obtained. Had known coronary artery disease. There is a mild elevation in troponin, but did not see any evidence of ischemia. 2. Diabetes mellitus type 2. Follow his sugar and A1c. 3. History of cerebrovascular accident. 4. Hypertension. 5. Renal insufficiency, probably chronic kidney disease. 6. Leukocytosis, probably secondary to effect of steroids. 7. Possible urinary tract infection. He was put on empiric steroids. HOSPITAL COURSE: The patient had a chest CT done on 08/23/2019 with mild basilar subsegmental atelectasis. No evidence of acute chest pathology by unenhanced CT scan. Orthopedics was asked to see, Dr. Church's saw, right shoulder pain. Apparently, he has flare-ups of gout this past year. He does not take allopurinol. He is not taking his prednisone or his colchicine. He was given some steroids in the emergency room. He had some leukocytosis thought secondary to the steroids but had quite a bit of pain in the right sternoclavicular junction and so felt he had septic right sternoclavicular joint. His blood cultures grew out methicillin-sensitive Staphylococcus aureus. We put him IV on IV antibiotics. There was concern that he need to get in and possibly get surgery on the right sternoclavicular joint. We made tentative arrangements to go to [place]. However, he improved clinically. He was getting IV Ancef. His IV actually infiltrated. We strongly encouraged him to get a PICC line and finish out 6 weeks of IV Ancef, but he flatly refused. I discussed it with him. Dr. Portillo discussed this with him. Also discussed with this family, but he wants to go home and take p.o. medicine so we have arranged for him to take the Keflex 500 mg 3 times a day for another 6 weeks and he wants to go home. DISPOSITION: We will discharge him home. FOLLOWUP: Follow up in Dr. Portillo' office. DISCHARGE MEDICATIONS: Norvasc 5 mg b.i.d., aspirin 81 mg a day, Coreg 25 mg b.i.d., Zyrtec 10 mg p.o. daily, Catapres 0.3 mg p.o. b.i.d., Colcrys 0.6 mg b.i.d. Trulicity 0.75 units injection once a week, Pepcid 20 mg a day, Glucotrol 10 mg b.i.d., [place] 10s he was taking q.4 hours. Tresiba flex touch 50 units subcutaneous q.a.m., Cozaar 50 mg a day, Protonix 40 mg a day, and Pravachol 40 mg at bedtime and then he was called in some Keflex 500 mg which he will take 3 times a day for about 5 and a half weeks. cc: Tan Gusman MD
--- NOTE | 2019-08-31 19:57 | INFECTIOUS DISEASE PROGRESS NO ---
DATE: 08/31/2019 SUBJECTIVE/OBJECTIVE: The patient has a Staphylococcus aureus bacteremia with an associated Staphylococcus aureus septic right sternoclavicular joint arthritis. The patient's right shoulder now is not swollen, and he moves it without difficulty. Therefore, I doubt that the shoulder is infected at this time. ASSESSMENT/PLAN: The patient had been told by myself and by Dr. Gusman that we strongly recommend treating with IV antibiotics for the patient's bacteremia and septic arthritis, and the patient continually refuses. I also told him that the last set of blood cultures we klarissa has 1 which is growing a gram-positive coccus, and the other one that is sterile. The patient again continues to say that he will only take oral antibiotics and he understands that most likely they will not be as effective as IV antibiotics for his infection. I have electronically sent a prescription for Keflex 500 mg p.o. every 8 hours for 6 weeks. Some of the side effects of Keflex including rash and diarrhea have been explained to the patient, who agrees with treatment. I plan on having the patient come to my office in 3 weeks, and after that visit at 6 weeks, at which time, if the patient is still alive and not ill, we will stop the antibiotics. I told the patient that if at any time he starts getting sick, such as having a fever or chills, or if the right sternoclavicular joint area gets larger and more tender (and the same goes for the right shoulder), to notify us right away. The patient has an appointment in my office in 3 weeks. cc: Angelo Portillo MD
== END 2019-08-31 16:00 | disposition home or self-care (01) | DRG 549 ==
LOC: ED 14:03 → EDIPHOLD 23:16 → SUATTDRO 23:16 → EDIPHOLD 08-23 17:19 → 4N 08-24 12:22
PROVIDERS: ATTEND Emergency Medicine